=== PATIENT | female | born 1965 | race Caucasian/White ===

== ENCOUNTER 2022-09-01 09:44 | Emergency (ER) | payer BC ==
[~2022-09-01] VITALS: Ht 162.5 cm; Wt 60.3 kg
[2022-09-01] MEDS ORDERED: LACTATED RINGERS 1,000 ML IV STA (09:50)
--- NOTE | 2022-09-01 09:50 | ED GI ---
General Stated Complaint: DIZZINESS Source of Information: Patient, EMS Exam Limitations: No Limitations History of Present Illness Date Seen by Provider: Sep 01, 2022 Time Seen by Provider: 09:46 Initial Comments 56-year-old female with past medical history of hypertension and chronically low potassium coming in via EMS from work due to feeling lightheaded and vomiting. Started over an hour ago, has vomited multiple times nonbloody nonbilious. In the past, she states this is happened when her potassium was very low. EMS reports her blood pressure was around 200 systolic. She takes clonidine for this. She is otherwise denying any chest pain, shortness of breath, abdominal pain, diarrhea, focal weakness or numbness, headache, vision changes, or any other concerns. Allergies and Home Medications Allergies Coded Allergies: Penicillins (Verified Allergy, Unknown, 09/01/22) codeine (Verified Allergy, Unknown, 09/01/22) Patient Home Medication List Home Medication List Reviewed: Yes Review of Systems Review of Systems Constitutional: No chills, No fever EENTM: No Symptoms Reported Respiratory: No Symptoms Reported Cardiovascular: No Symptoms Reported Gastrointestinal: See HPI Genitourinary: No Symptoms Reported Musculoskeletal: no symptoms reported Skin: no symptoms reported Psychiatric/Neurological: No Symptoms Reported Past Wbxxugj-Olvfnc-Olrjzk Hx Patient Social History Tobacco Use?: No Past Medical History Surgeries: Yes Hysterectomy Physical Exam Vital Signs Vital Signs - First Documented 09/01/22 09:44 Temp 35.6 Pulse 84 Resp 16 B/P (MAP) 218/122 (154) Pulse Ox 96 Capillary Refill : Height/Weight/BMI Height: '" Weight: lbs. oz. kg; BMI Method: General Appearance: WD/WN, mild distress (Actively vomiting) HEENT: PERRL/EOMI, normal ENT inspection, pharynx normal, other (Serous fluid behind the right TM without any erythema or bulging) Neck: non-tender, full range of motion, supple, normal inspection Respiratory: chest non-tender, lungs clear, normal breath sounds, no respiratory distress, no accessory muscle use Cardiovascular: regular rate, rhythm, no edema, no murmur Gastrointestinal: normal bowel sounds, non tender, soft; No distended, No guarding, No rebound Extremities: normal range of motion, non-tender, normal inspection, no pedal edema, no calf tenderness, normal capillary refill Back: normal inspection, no CVA tenderness Neurologic/Psychiatric: manager financial II-XII nml as tested, no motor/sensory deficits, alert, normal mood/affect, oriented x 3 Skin: normal color, warm/dry Progress/Results/Core Measures Results/Orders Lab Results Laboratory Tests Test 09/01/22 09:45 09/01/22 10:04 Range/Units White Blood Count 8.5 4.3-11.0 10^3/uL Red Blood Count 5.03 3.80-5.11 10^6/uL Hemoglobin 16.0 11.5-16.0 g/dL Hematocrit 46 35-52 % Mean Corpuscular Volume 92 80-99 fL Mean Corpuscular Hemoglobin 32 25-34 pg Mean Corpuscular Hemoglobin Concent 35 32-36 g/dL Red Cell Distribution Width 12.2 10.0-14.5 % Platelet Count 264 130-400 10^3/uL Mean Platelet Volume 9.4 9.0-12.2 fL Immature Granulocyte % (Auto) 1 % Neutrophils (%) (Auto) 52 42-75 % Lymphocytes (%) (Auto) 39 12-44 % Monocytes (%) (Auto) 5 0-12 % Eosinophils (%) (Auto) 2 0-10 % Basophils (%) (Auto) 1 0-10 % Neutrophils # (Auto) 4.4 1.8-7.8 10^3/uL Lymphocytes # (Auto) 3.3 1.0-4.0 10^3/uL Monocytes # (Auto) 0.5 0.0-1.0 10^3/uL Eosinophils # (Auto) 0.2 0.0-0.3 10^3/uL Basophils # (Auto) 0.1 0.0-0.1 10^3/uL Immature Granulocyte # (Auto) 0.1 0.0-0.1 10^3/uL Sodium Level 138 135-145 MMOL/L Potassium Level 3.5 L 3.6-5.0 MMOL/L Chloride Level 105 98-107 MMOL/L Carbon Dioxide Level 21 21-32 MMOL/L Anion Gap 12 5-14 MMOL/L Blood Urea Nitrogen 9 7-18 MG/DL Creatinine 0.76 0.60-1.30 MG/DL Estimat Glomerular Filtration Rate 91 BUN/Creatinine Ratio 12 Glucose Level 132 H 70-105 MG/DL Calcium Level 9.2 8.5-10.1 MG/DL Corrected Calcium 9.0 8.5-10.1 MG/DL Magnesium Level 2.0 1.6-2.4 MG/DL Total Bilirubin 0.4 0.1-1.0 MG/DL Aspartate Amino Transf (AST/SGOT) 20 5-34 U/L Alanine Aminotransferase (ALT/SGPT) 11 0-55 U/L Alkaline Phosphatase 86 40-136 U/L Troponin I < 0.028 <0.028 NG/ML Total Protein 6.8 6.4-8.2 GM/DL Albumin 4.2 3.2-4.5 GM/DL Lipase 8 8-78 U/L Glucometer 131 H 70-110 MG/DL My Orders Orders - MIGUEL CARDONA MD Cbc With Automated Diff (09/01/22 09:50) Comprehensive Metabolic Panel (09/01/22 09:50) Lipase (09/01/22 09:50) Magnesium (09/01/22 09:50) Ed Iv/Invasive Line Start (09/01/22 09:50) Ekg Tracing (09/01/22 09:50) Promethazine Injection (Phenergan Injec (09/01/22 10:00) Lactated Ringers (Lr 1000 Ml Iv Solution (09/01/22 09:50) Ondansetron Injection (Zofran Injectio (09/01/22 10:15) Clonidine Tablet (Catapres Tablet) (09/01/22 10:15) Meclizine Tablet (Antivert Tablet) (09/01/22 10:45) Ct Head Wo (09/01/22 10:37) Troponin I Narendra (09/01/22 10:38) Labetalol Injection (Normodyne Injection (09/01/22 11:15) Medications Given in ED Current Medications Medications Dose Ordered Sig/Varsha Route Start Time Stop Time Status Last Admin Dose Admin Clonidine HCl 0.2 mg ONCE ONCE PO 09/01/22 10:15 09/01/22 10:16 DC 09/01/22 10:40 0.2 MG Labetalol HCl 20 mg ONCE ONCE IV 09/01/22 11:15 09/01/22 11:16 DC 09/01/22 11:20 20 MG Meclizine HCl 25 mg ONCE ONCE PO 09/01/22 10:45 09/01/22 10:46 DC 09/01/22 10:40 25 MG Ondansetron HCl 4 mg ONCE ONCE IVP 09/01/22 10:15 09/01/22 10:16 DC 09/01/22 10:24 4 MG Promethazine HCl 25 mg ONCE ONCE IVP 09/01/22 10:00 09/01/22 10:01 DC 09/01/22 09:59 25 MG Vital Signs/I&O 09/01/22 09:44 Temp 35.6 Pulse 84 Resp 16 B/P (MAP) 218/122 (154) Pulse Ox 96 Progress Progress Note : Progress Note 56-year-old female with above history coming in due to nonbloody nonbilious vomiting in the setting of feeling lightheaded. Patient was hypertensive on presentation. She states she intermittently takes clonidine for high blood pressure, but has not taken it in many months. Gave her clonidine after some IV Phenergan and Zofran. I was unclear if the blood pressure was making symptoms worse so went ahead and additionally treated it with IV labetalol. CT head with no acute findings. EKG with no ischemic changes. She states she has chronic low potassium, its low normal at 3.5 today. Troponin negative. Not having any other concerning findings other than the medical like sensation. She does have some decreased hearing on the right side which she states started around the same time. She does state that she has been going through a viral illness for the past several days. Differential includes BPPV versus labyrinthitis versus vestibular neuritis versus Mnire's versus less likely cerebellar stroke or VBI given lack of risk factors. Favor labyrinthitis given the hearing changes on the right side, serous fluid behind the right TM, vertigo symptoms, and recent viral illness. Her exam favors a peripheral cause of her symptoms given how violent the vertigo is with any head movement and gets better with rest. Patient unable to really tolerate the Jesús-Hallpike due to the movement causing worsening symptoms. After nausea medicines, fluid, and some rest, feeling a lot better. I believe she stable for discharge with outpatient management. We will send prescriptions for nausea medicines. If symptoms persist, would have her follow-up with ENT Initial ECG Impression Date: Sep 01, 2022 Initial ECG Impression Time: 09:57 Initial ECG Rate: 82 Initial ECG Rhythm: Normal Sinus Comment Narrow QRS, no STEMI, no ST or T wave changes that are concerning Diagnostic Imaging Diagonstic Imaging: CT (head) Comments NAME: FIONA [facility] REC#: [id number] PT STATUS: REG ER : 1965 PHYSICIAN: MIGUEL CARDONA MD ADMIT DATE: 09/01/22/ER Draft Date of Exam:09/01/22 CT HEAD WO Clinical Indication: Patient with vertigo right-sided hearing has decreased. Patient vomiting. Exam: Axial CT scan of the brain without IV contrast with coronal and sagittal reformatted images. Auto Exposure Controls were utilized during the CT exam to meet ALARA standards for radiation dose reduction. Comparison: None Findings: There is no evidence of acute cerebral infarct, intracranial hemorrhage, or gross mass effect. Suspected prominent perivascular space in the region beneath the right basal ganglia. The brain parenchymal volume appears appropriate for patient's age. There is normal morales-white matter distinction. There is no significant midline shift or herniation. There is no evidence of hydrocephalus. The basal cisterns are unremarkable. The skull, extracranial soft tissue, and orbits are unremarkable. The paranasal sinuses are unremarkable. Temporal bones show no significant abnormality. Impression: There is no evidence of acute intracranial process. Dictated on workstation # [id number] Dict: 09/01/22 1106 Trans: 09/01/22 1111 [facility] [id number] Interpreted by: SAHRA FOLEY MD Electronically signed by: Departure Impression Primary Impression: Vertigo Additional Impression: Labyrinthitis of right ear Disposition: HOME, SELF-CARE Condition: Stable Departure-Patient Inst. Decision time for Depature: 12:00 Referrals: MOSES ROMERO MD Patient Instructions: Labyrinthitis, Vertigo ED Add. Discharge Instructions: We believe the vertigo or dizziness and nausea you are feeling are from a problem with your inner ear on the right. This typically occurs after a viral illness which you are describing that you had. Typically this will last several days and then get better. If it is not improving, call Dr. Romero to schedule an appointment as he is the all around gear machine operator. I recommend taking [id number] Zyrtec as well which can help clear up the fluid behind the ear. You can take the Phenergan or Zofran as needed for nausea. The meclizine is for vertigo as well. If her blood pressure is elevated at home later today then you can take the clonidine that you previously were prescribed. If it is persistently elevated over the next several days, please call your doctor as you may need to be on a different medicine. Scripts Promethazine HCl (Promethazine Tablet) 25 Mg Tablet 25 MG PO Q8H PRN for NAUSEA/VOMITING-2ND LINE for 5 Days, #15 TAB 0 Refills Prov: MIGUEL CARDONA MD 09/01/22 Ondansetron (Ondansetron Odt) 4 Mg Tab.rapdis 4 MG SL Q6H PRN for NAUSEA/VOMITING-1ST LINE for 5 Days, #20 TAB Prov: MIGUEL CARDONA MD 09/01/22 Meclizine HCl (Meclizine HCl) 25 Mg Tablet 25 MG PO BID PRN for VERTIGO for 10 Days, #20 TAB Prov: MIGUEL CARDONA MD 09/01/22 Work/School Note: Family Work Note, Patient Received Medical Care In the Emergency Department On: Sep 01, 2022 Patient Will Be Able to Return to Work/School On: Sep 02, 2022 Work Release Form Date Seen in the Emergency Department: Sep 01, 2022 Return to Work: Sep 03, 2022 Restrictions: No Restrictions MIGEUL CARDONA MD Sep 01, 2022 09:50
[2022-09-01 10:00] LABS: BASOPHILS # (AUTO) 0.1 10^3/uL (0.0-0.1); BASOPHILS % (AUTO) 1 % (0-10); EOSINOPHILS # (AUTO) 0.2 10^3/uL (0.0-0.3); EOSINOPHILS % (AUTO) 2 % (0-10); HEMATOCRIT 46 % (35-52); LYMPHOCYTES # (AUTO) 3.3 10^3/uL (1.0-4.0); LYMPHOCYTES % (AUTO) 39 % (12-44); MEAN CORPUSCULAR HEMOGLOBIN 32 pg (25-34); MEAN CORPUSCULAR HGB CONC 35 g/dL (32-36); MEAN CORPUSCULAR VOLUME 92 fL (80-99); MEAN PLATELET VOLUME 9.4 fL (9.0-12.2); MONOCYTES # (AUTO) 0.5 10^3/uL (0.0-1.0); MONOCYTES % (AUTO) 5 % (0-12); NEUTROPHILS # (AUTO) 4.4 10^3/uL (1.8-7.8); NEUTROPHILS % (AUTO) 52 % (42-75); PLATELET COUNT 264 10^3/uL (130-400); WHITE BLOOD COUNT 8.5 10^3/uL (4.3-11.0)
[2022-09-01] MEDS ORDERED: PROMETHAZINE INJ 25 MG/ML (PHENERGAN) AMP IVP ONE (10:00)
[2022-09-01] MEDS ORDERED: cloNIDine 0.2 MG (CATAPRES) TAB PO ONE (10:15)
[2022-09-01] MEDS ORDERED: ONDANSETRON 4 MG/2 ML (SDV) Z0FRAN IVP ONE (10:15)
[2022-09-01 10:22] LABS: ALBUMIN 4.2 GM/DL (3.2-4.5); BILIRUBIN,TOTAL 0.4 MG/DL (0.1-1.0); CALCIUM 9.2 MG/DL (8.5-10.1); CREATININE SERUM 0.76 MG/DL (0.60-1.30); POTASSIUM 3.5 MMOL/L (3.6-5.0); TOTAL PROTEIN 6.8 GM/DL (6.4-8.2)
[2022-09-01] MEDS ORDERED: MECLIZINE 25 MG (ANTIVERT) TAB PO ONE (10:45)
--- NOTE | 2022-09-01 11:12 | Diagnostic Imaging Report ---
Clinical Indication: Patient with vertigo right-sided hearing has decreased. Patient vomiting. Exam: Axial CT scan of the brain without IV contrast with coronal and sagittal reformatted images. Auto Exposure Controls were utilized during the CT exam to meet ALARA standards for radiation dose reduction. Comparison: None Findings: There is no evidence of acute cerebral infarct, intracranial hemorrhage, or gross mass effect. Suspected prominent perivascular space in the region beneath the right basal ganglia. The brain parenchymal volume appears appropriate for patient's age. There is normal morales-white matter distinction. There is no significant midline shift or herniation. There is no evidence of hydrocephalus. The basal cisterns are unremarkable. The skull, extracranial soft tissue, and orbits are unremarkable. The paranasal sinuses are unremarkable. Temporal bones show no significant abnormality. Impression: There is no evidence of acute intracranial process. Dictated by: Dictated on workstation # [id number]
[2022-09-01] MEDS ORDERED: LABETALOL HCL 20 MG/4 ML VIAL IV ONE (11:15)
[2022-09-01] MEDS ORDERED: PROM25TA14 PO ×2 (11:37→16:07)
[2022-09-01] MEDS ORDERED: MECL-149 PO ×2 (11:37→16:07)
[2022-09-01] MEDS ORDERED: ONDA4TAB11 SL ×2 (11:37→16:07)
[2022-09-01] MEDS ORDERED: LABETALOL 200 MG (NORMODYNE) TAB PO ONE (11:45)
[2022-09-01 12:04] VITALS: BP 180/118
== END 2022-09-01 12:04 | disposition home or self-care (01) ==
LOC: EDUNIT# 09:44 → ER 09:45
DX: H83.91 Unspecified disease of right inner ear (principal); E87.6 Hypokalemia; I10 Essential (primary) hypertension; Z28.310 Unvaccinated for COVID-19
CPT/HCPCS: 36415; 70450; 80053; 82947; 83690; 83735; 84484; 85025; 93005

== ENCOUNTER 2023-04-28 09:24 | Inpatient (IN) | payer BC ==
[~2023-04-28] VITALS: Ht 162.6 cm; Wt 59.6 kg
[~2023-04-28 09:24] MED LIST: MECL-291 PO; ONDA4TAB11 SL; PROM25TA14 PO
[2023-04-28 11:15] VITALS: BP 125/82
--- OUTSIDE RECORDS SUMMARY | 2023-04-28 11:37 | XMS REPORT ---
Author Author Catie Ponce Organization [facility] Address [address] [place], [place] [id number] Care Team Providers Care Exchange Administrator Name Role Phone Susie Ponce PCP Allergies and Adverse Reactions Name Reaction Notes Penicillin codeine sulfate Anaphylaxis, Vomiting Codeine Phosphate Soluble codeine-guaifenesin Medications Active Name Start Date Estimated Comple tion Date SIG Comments clonidine HCl 0.1 mg oral tablet Take 1-2 tablets PO QD PRN for blood pressure Name Start Date Expiration Date SIG Comments potassium chloride 10 mEq oral tablet extended release 03/13/2019 03/07/2020 take 2 tablets (20 meq) by oral route 3 times per day with food for 30 days Abreva 10 % topical cream 09/04/2019 10/02/2019 ap ply to affected area(s) by topical route 3 times a day for 7 days azithromycin 250 mg oral tablet 09/04/2019 09/09/2019 take 2 tablets (500 mg) by oral route once daily for 1 day then 1 tablet (250 mg) by oral route once daily for 4 days Pyridium 100 mg tablet 12/09/2020 12/12/2020 take 1 tablet (100 mg) by oral route 3 times per day after meals for 3 days Cipro 250 mg tablet 12/13/2020 12/16/2020 take 1 t ablet by oral route 2 times a day for 3 days azithromycin 250 mg oral tablet 08/13/2021 08/18/2021 take 2 tablets (500 mg) by oral route once daily for 1 day then 1 tablet (250 mg) by oral route once daily for 4 days doxycycline hyclate 100 mg oral capsule 09/10/2021 09/17/2021 take 1 capsule (100 mg) by oral route every 12 hours for 7 days prednisone 20 mg oral tablet 09/10/2021 09/15/2021 take 2 tablets (40 m g) by oral route once daily for 5 days potassium chloride ER 10 mEq tablet,extended release(part/cryst) 03/13/2022 10/09/2022 TAKE 2 TABLETS (20 MEQ) BY MOUTH 3 TIMES PER DAY WITH FOOD FOR 30 DAYS Discontinued Name Start Date Discontinued Date SIG Comment s amlodipine 2.5 mg oral tablet 04/28/2021 Take 1-2 tabs PO QD Problem List Not available. Vital Signs Date Time BP-Sys(mm[Hg] BP-Zeenat(mm[Hg]) HR(bpm) RR(rpm) Temp WT HT HC BMI BSA BMI Percentile O2 Sat(%) 2022 8:43: 00 AM 138 mm[Hg] 108 mm[Hg] 86 {beats}/ min 18 rpm 98.1 F 137 lbs 98 % 2020 9:35: 00 AM 156 mm[Hg] 90 mm[Hg] 80 {beats}/ min 18 rpm 97.9 F 139 lbs 63 in 24.6 2 kg/m 2 1.67 m2 100 % 2020 5:24: 00 PM 150 mm[Hg] 92 mm[Hg] 81 {beats}/ min 18 rpm 98.1 F 143 lbs 63 in 25.3 311 kg/m 2 1.69 8 m2 97 % 2019 11:05 :00 AM 145 mm[Hg] 60 mm[Hg] 81 {beats}/ min 18 rpm 98.1 F 138 lbs 63 in 24.4 5 kg/m 2 1.67 m2 97 % 2018 5:33: 00 PM 160 mm[Hg] 100 mm[Hg] 84 {beats}/ min 18 rpm 97.9 F 132 .31 2 lbs 63 in 23.4 379 kg/m 2 1.63 33 m2 98 % Social History Name Description Comments Tobacco Current every day smoker 020 - denies alcohol use Caffeine walk History of Procedures Date Ordered Description Order Status 09/04/2019 12:00 AM THER/PROPH/DIAG INJ SC/IM Rev iewed 09/04/2019 12:00 AM Decadron 4mg Injection Review ed 09/04/2019 12:00 AM Depo-Medrol 40mg Injection Re viewed 11/07/2019 12:00 AM PNEUMOCOCCAL VACC 13 BRIE IM R eviewed 11/07/2019 12:00 AM IMMUNIZATION ADMIN Reviewed 12/09/2020 5:39 PM URINALYSIS AUTO W/O SCOPE Revi ewed 12/09/2020 5:43 PM URINALYSIS AUTO W/O SCOPE Revi ewed 04/28/2021 12:00 AM COMPLETE CBC W/AUTO DIFF WBC Reviewed 04/28/2021 12:00 AM COMPREHEN METABOLIC PANEL Rev iewed 04/28/2021 12:00 AM ASSAY THYROID STIM HORMONE Re viewed 04/28/2021 12:00 AM ASSAY OF FREE THYROXINE Revie wed 04/28/2021 12:00 AM LIPID PANEL Reviewed 04/28/2021 12:00 AM GLYCOSYLATED HEMOGLOBIN TEST Reviewed 04/28/2021 12:00 AM ROUTINE VENIPUNCTURE Reviewed 03/05/2022 12:00 AM COMPLETE CBC W/AUTO DIFF WBC Reviewed 03/05/2022 12:00 AM COMPREHEN METABOLIC PANEL Rev iewed 03/05/2022 12:00 AM ASSAY THYROID STIM HORMONE Re viewed 03/05/2022 12:00 AM GLYCOSYLATED HEMOGLOBIN TEST Reviewed 03/05/2022 12:00 AM LIPID PANEL Reviewed 03/05/2022 12:00 AM ROUTINE VENIPUNCTURE Reviewed 03/23/2023 9:21 AM SCREEN DEPRESSION PERFORMED Re viewed Results Summary Date and Description Results 12/09/2020 5:39 PM Clarity Ur clearUrin e-Color dark yellowGlucose Ur-sCnc negBilirub Ur Ql negKetones Ur Ql Strip negSp Gr Ur Qn >=1.030Hgb Ur Ql Strip smallpH Ur-LsCnc 6.0Prot Ur Ql Strip negUrobilinogen Ur-mCnc 0.2Nitrite Ur Ql Strip negWBC # Ur neg 12/09/2020 5:43 PM Clarity Ur clearUrin e-Color dark yellowGlucose Ur-sCnc negBilirub Ur Ql negKetones Ur Ql Strip negSp Gr Ur Qn >=1.030Hgb Ur Ql Strip smallpH Ur-LsCnc 6.0Prot Ur Ql Strip negUrobilinogen Ur-mCnc 0.2Nitrite Ur Ql Strip negWBC # Ur neg 04/28/2021 2:28 PM WBC 6.0RBC 5.01HGB 1 5.50 g/dLHCT 47.0 %MCV 94.0 fLMCH 30.90 pgMCHC 33.0 g/dLRDW SD 41 %RDW CV 11.80 %MPV 9.90 fLPLT 220 x10E3/uLNRBC# 0.00NRBC% 0.0%NEUT 57.9%LYMP 32.6%MONO 6.2%EOS 2.0%BASO 1.0#NEUT 3.47#LYMP 1.95#MONO 0.37#EOS 0.12#BASO 0.06MANUAL DIFF NOT INDGLUCOSE 97SODIUM 139POTASSIUM 4.0CHLORIDE 103.0 mmol/LCO2 32BUN 10.0 mg/dLCREATININE 0.70 mg/dLSGOT/AST 23SGPT/ALT 13ALK PHOS 89TOTAL PROTEIN 6.6ALBUMIN 4.0TOTAL BILI 0.3CALCIUM 9.90 mg/dLAGE 55GFR NonAA 86GFR AA 104eGFR 86 mL/min/1.73meGFR AA* >60 mL/min/1.73mTRIGLYCERIDES 227CHOLESTEROL 177.0 mg/dLHDL 44TOT CHOL/HDL 4.0LDL (CALC) 88HGB A1C 5.0 %Est Avg Glucose 96.8TSH 0.59 03/05/2022 4:30 PM WBC 7.0RBC 4.91HGB 1 5.40 g/dLHCT 45.40 %MCV 93.0 fLMCH 31.40 pgMCHC 33.90 g/dLRDW SD 42 %RDW CV 12.20 %MPV 9.90 fLPLT 242 x10E3/uLNRBC# 0.00NRBC% 0.0%NEUT 47.90%LYMP 42.30%MONO 5.80%EOS 2.60%BASO 1.10#NEUT 3.36#LYMP 2.97#MONO 0.41#EOS 0.18#BASO 0.08MANUAL DIFF NOT INDTRIGLYCERIDES 136CHOLESTEROL 247.0 mg/dLHDL 49TOT CHOL/HDL 5.0LDL (CALC) 171GLUCOSE 96SODIUM 135POTASSIUM 4.2CHLORIDE 103.0 mmol/LCO2 27BUN 13.0 mg/dLCREATININE 0.80 mg/dLSGOT/AST 33SGPT/ALT 20ALK PHOS 91TOTAL PROTEIN 7.4ALBUMIN 4.6TOTAL BILI 0.7CALCIUM 9.90 mg/dLAGE 56GFR NonAA 74GFR AA 90eGFR 74 mL/min/1.73meGFR AA* >60 mL/min/1.73mTSH W/REFLEX 0.90HGB A1C 5.20 %Est Avg Glucose 102.5 03/23/2023 9:21 AM During the past grayson h, have you been feeling depressed? NoDuring the past month, have you lost interest in usual activity? No History Of Immunizations Name Date Admin Mfg Name Mfg Code Trade Name Lot# Route Inj Vis Given Vis Pub CVX Pneumococcal 11/07/19 Catrina garay [employer] PREVNAR 13 [id number] Intramuscular Left Deltoid 11/07/192022 133 History of Past Illness Name Date of Onset Comments Hypokalemia Hypertension Hypokalemia Mar 13 2019 5:43PM HTN (hypertension) Mar 13 2019 5:43PM Acute maxillary sinusitis Sep 04 2019 11:09AM Cold sore Sep 04 2019 11:09AM Pneumococcus Nov 07 2019 9:30AM Enlarged thyroid Jul 02 2020 9:54AM HTN (hypertension) Jul 02 2020 9:54AM HLD (hyperlipidemia) Jul 02 2020 9:54AM Polycythemia Jul 02 2020 9:54AM Urinary Frequency Dec 09 2020 5:26PM Dehydration Dec 09 2020 5:26PM Essential hypertension Apr 28 2021 9:51AM Hypokalemia Apr 28 2021 9:51AM Fatigue Apr 28 2021 9:51AM Hypokalemia Apr 28 2021 9:37AM White coat syndrome with hig h blood pressure but without hypertension Apr 28 2021 9:37AM Vertigo Aug 13 2021 3:17PM Nasal congestion Aug 13 2021 3:17PM Cough Aug 13 2021 3:17PM Cough Sep 10 2021 10:12AM Nasal congestion Sep 10 2021 10:12AM Elevated glucose level Mar 02 2022 9:43AM Hypokalemia Mar 02 2022 9:43AM Mixed hyperlipidemia Mar 02 2022 9:43AM Fatigue Mar 02 2022 9:43AM Anemia Mar 02 2022 9:43AM Essential hypertension Mar 23 2023 8:50AM Hyponatremia Mar 23 2023 8:50AM Payers Insurance Name Company Name Plan Name Plan Number Policy Num rosalie Policy Group Number [facility] Date [id number] N/A [facility] [id number] N/A History of Encounters Visit Date Visit Type Provider 03/23/2023 Office visit Susie Ponce SOCIAL MEDIA MARKETING ANALYST 03/05/2022 Laboratory Susie Ponce SOCIAL MEDIA MARKETING ANALYST 09/10/2021 Office visit Caremn hogan SOCIAL MEDIA MARKETING ANALYST 08/13/2021 Office visit Carmen hogan SOCIAL MEDIA MARKETING ANALYST 04/28/2021 Office visit Susie Ponce SOCIAL MEDIA MARKETING ANALYST 12/09/2020 Office visit Marbella rider SOCIAL MEDIA MARKETING ANALYST 11/07/2019 Nurse visit Leah Jerome SOCIAL MEDIA MARKETING ANALYST 09/04/2019 Office visit Susie Ponce SOCIAL MEDIA MARKETING ANALYST 03/13/2019 Office visit Sylvia Jenkins PRN
--- OUTSIDE RECORDS SUMMARY | 2023-04-28 11:37 | XMS REPORT ---
Author Author Catie Ramos Organization [facility] Address [address] [place], [place] [id number] Care Team Providers Care Field Artillery Officer Name Role Phone Carmen Ramos PCP Allergies and Adverse Reactions Name Reaction Notes Penicillin codeine sulfate Anaphylaxis, Vomiting Codeine Phosphate Soluble codeine-guaifenesin Plan of Treatment Planned Activity Comments Planned Date Planned Time Plan /Goal CMP 03/24/2023 12:00 AM Acute abdomen x-ray series 03/24/2023 12:00 AM Medications Active Name Start Date Estimated Comple tion Date SIG Comments clonidine HCl 0.1 mg oral tablet Take 1-2 tablets PO QD PRN for blood pressure lisinopril oral tablet 20 mg 03/23/2023 05/22/2023 take 1 tablet (20 mg) by oral route once daily for 30 days Norvasc oral tablet 10 mg 03/24/2023 04/23/2023 take 1 tablet (10 mg) by oral route once daily at bedtime Name Start Date Expiration Date SIG Comments [...] BMI BSA BMI Percentile O2 Sat(%) 2022 5:50: 00 PM 160 mm[Hg] 104 mm[Hg] 2022 4:59: 00 PM 210 mm[Hg] 112 mm[Hg] 78 {beats}/ min 18 rpm 98.2 F 137 .37 5 lbs 63 in 24.3 3 kg/m 2 1.66 m2 98 % 2022 8:43: 00 AM 138 mm[Hg] 108 [...] 9:21 AM SCREEN DEPRESSION PERFORMED Re viewed 03/24/2023 5:16 PM URINALYSIS AUTO W/O SCOPE Revi ewed Results Summary Date and Description Results 12/09/2020 [...] you lost interest in usual activity? No 03/24/2023 5:16 PM Clarity Ur clearUrin e-Color yellowGlucose Ur-sCnc negBilirub Ur Ql negKetones Ur Ql Strip negSp Gr Ur Qn >=1.030Hgb Ur Ql Strip LargepH Ur-LsCnc 5.5Prot Ur Ql Strip TraceUrobilinogen Ur-mCnc 0.2 E.U/dLNitrite Ur Ql Strip NegWBC # Ur Neg History Of Immunizations Name Date Admin Mfg Name Mfg Code Trade Name Lot# Route Inj Vis Given Vis Pub CVX Pneumococcal 11/07/19 Catrina coxPra xis W[employer] PREVNAR 13 [id number] Intramuscular Left Deltoid 11/07/19 20 2022 133 History of Past Illness Name Date [...] 2023 8:50AM Hyponatremia Mar 23 2023 8:50AM Uncontrolled hypertension Mar 24 2023 5:02PM Hematuria Mar 24 2023 5:02PM History of hypokalemia Mar 24 2023 5:02PM Hypertensive crisis Mar 24 2023 5:02PM Payers Insurance Name Company Name Plan Name Plan Number Policy Num rosalie Policy Group Number Start Date BCBS [facility] [id number] N/A R R [id number] N/A History of Encounters Visit Date Visit Type Provider 03/24/2023 Office visit Carmen hogan ROBOTYPE OPERATOR 03/23/2023 Office visit Susie Ponce ROBOTYPE OPERATOR 03/05/2022 Laboratory Susie Ponce ROBOTYPE OPERATOR 09/10/2021 Office visit Carmen hogan ROBOTYPE OPERATOR 08/13/2021 Office visit Carmen hogan ROBOTYPE OPERATOR 04/28/2021 Office visit Susie Ponce ROBOTYPE OPERATOR 12/09/2020 Office visit Marbella rider ROBOTYPE OPERATOR 11/07/2019 Nurse visit Leah Jerome ROBOTYPE OPERATOR 09/04/2019 Office visit Susie Ponce ROBOTYPE OPERATOR 03/13/2019 Office visit Sylvia HAIR
--- OUTSIDE RECORDS SUMMARY | 2023-04-28 11:37 | XMS REPORT ---
Author Author Catie Randall Organization [facility] Address [address] [place], [place] [id number] Care Team Providers Care Gyro Compass Tester Name Role Phone Hernan Randall PCP Allergies and Adverse Reactions Name Reaction Notes Penicillin Anaphylaxis codeine sulfate Anaphylaxis, Vomiting digoxin near syncope Medications Active Name Start Date Estimated Comple tion Date SIG Comments clonidine HCl 0.1 mg oral tablet Take 1-2 tablets PO QD PRN for blood pressure Norvasc oral tablet 10 mg 03/24/2023 04/23/2023 take 1 tablet (10 mg) by oral route once daily at bedtime lisinopril oral tablet 20 mg 03/29/2023 05/28/2023 Take 1 tablet BID aspirin 81 mg tablet,delayed release take 1 tablet (81 mg) by oral route once daily potassium chloride ER 10 mEq tablet,extended release(part/cryst) 03/29/2023 10/25/2023 TAKE 2 TABLETS (20 MEQ) BY MOUTH 3 TIMES PER DAY WITH FOOD FOR 30 DAYS Name Start Date Expiration Date SIG Comments [...] oral route once daily for 5 days Discontinued Name Start Date Discontinued Date SIG Comment s amlodipine 2.5 mg oral tablet 04/28/2021 Take 1-2 tabs PO QD Problem List Not available. Vital Signs Date Time BP-Sys(mm[Hg] BP-Zeenat(mm[Hg]) HR(bpm) RR(rpm) Temp WT HT HC BMI BSA BMI Percentile O2 Sat(%) 2022 1:59: 00 PM 124 mm[Hg] 82 mm[Hg] 78 {beats}/ min 18 rpm 98.2 F 137 lbs 63 in 24.2 682 kg/m 2 1.66 2 m2 98 % 2022 5:50: 00 PM 160 mm[Hg] 104 mm[Hg] 2022 4:59: 00 PM 210 mm[Hg] 112 mm[Hg] 78 {beats}/ min 18 rpm 98.2 F 137 .37 5 lbs 63 in 24.3 3 kg/m 2 1.66 43 m2 98 % 2022 8:43: 00 AM 138 mm[Hg] 108 mm[Hg] 86 {beats}/ min 18 rpm 98.1 F 137 lbs 98 % 2020 9:35: 00 AM 156 mm[Hg] 90 mm[Hg] 80 {beats}/ min 18 rpm 97.9 F 139 lbs 63 in 24.6 2 kg/m 2 1.67 41 m2 100 % 2020 5:24: 00 PM 150 mm[Hg] 92 mm[Hg] 81 {beats}/ min 18 rpm 98.1 F 143 lbs 63 in 25.3 311 kg/m 2 1.70 m2 97 % 2019 11:05 :00 AM 145 mm[Hg] 60 mm[Hg] 81 {beats}/ min 18 rpm 98.1 F 138 lbs 63 in 24.4 5 kg/m 2 1.66 81 m2 97 % 2018 5:33: 00 PM 160 mm[Hg] 100 mm[Hg] 84 {beats}/ min 18 rpm 97.9 F 132 .31 2 lbs 63 in 23.4 379 kg/m 2 1.63 33 m2 98 % Social History Name Description Comments Tobacco Current every day smoker 1 pack every 7 days denies alcohol use Caffeine walk History of [...] PM URINALYSIS AUTO W/O SCOPE Revi ewed 03/24/2023 12:00 AM COMPREHEN METABOLIC PANEL Ret urned 03/24/2023 12:00 AM X-RAY EXAM SERIES ABDOMEN Ret urned 03/29/2023 12:00 AM COMPLETE CBC W/AUTO DIFF WBC Returned 03/29/2023 12:00 AM COMPREHEN METABOLIC PANEL Ret urned 03/29/2023 12:00 AM GLYCOSYLATED HEMOGLOBIN TEST Returned 03/29/2023 12:00 AM LIPID PANEL Returned 03/29/2023 12:00 AM ASSAY THYROID STIM HORMONE Re turned 03/29/2023 12:00 AM VITAMIN B-12 Returned 03/29/2023 12:00 AM URINALYSIS AUTO W/SCOPE Retur joseph 03/29/2023 12:00 AM MICROALBUMIN QUANTITATIVE Ret urned Results Summary Date and Description Results 12/09/2020 [...] Given Vis Pub CVX P[facility] [id number] Intramuscular Left Deltoid 11/07/19 20 2023 133 History of Past Illness Name Date of Onset Comments Hypokalemia Hypertension Meningitis Viral hepatitis C Endometriosis Shingles Hypokalemia Mar 13 2019 5:43PM HTN (hypertension) [...] 5:02PM Hypertensive crisis Mar 24 2023 5:02PM Uncontrolled hypertension Mar 29 2023 3:19PM Hematuria Mar 29 2023 3:19PM Hypokalemia Mar 29 2023 3:19PM Establishing care with new doctor, encounter for Mar 29 2023 3:19PM Hyperglycemia Mar 29 2023 3:19PM Screening for diabetes mellitus Mar 29 2023 3:1 9PM HLD (hyperlipidemia) Mar 29 2023 3:19PM Establishing care with new doctor, encounter for Mar 29 2023 2:00PM HTN (hypertension) Mar 29 2023 2:00PM Hypokalemia Mar 29 2023 2:00PM Hematuria Mar 29 2023 2:00PM Tremor Mar 29 2023 2:00PM Payers Insurance Name Company Name Plan Name Plan Number Policy Num rosalie Policy Group Number Start Date BCBS Bcbs [facility] [id number] N/A UMR UMR [id number] N/A History of Encounters Visit Date Visit Type Provider 03/29/[address] Hernan Hong 03/24/2023 Office visit Carmen hogan [employer]OTOGRAPH[employer]' 03/23/2023 Office visit Susie Ponce [employer]APH[employer]' 03/05/2022 Laboratory Susie Ponce [employer]GRAPH[employer]' 09/10/2021 Office visit Carmen hogan [employer] PHOTOGRAPHERS' 08/13/2021 Office visit Carmen hogan [employer]DEL PHOTOGRAPHERS' 04/28/2021 Office visit Susie Ponce [employer]OTOGRAPH[employer]' 12/09/2020 Office visit Marbella rider [employer]OTOGRAPHERS' 11/07/2019 Nurse visit Leah Jerome [employer]OTOGRAPH[employer]' 09/04/2019 Office visit Susie Ponce [employer]OTO[employer]APH[employer] 03/13/2019 Office visit Sylvia Jenkins PRN
--- OUTSIDE RECORDS SUMMARY | 2023-04-28 11:37 | XMS REPORT ---
Author Author Catie Ramos Organization [facility] Address [address] [place], [place] [id number] Care Team Providers Care Equipment Cleaner And Tester Name Role Phone Carmen Ramos PCP Allergies and Adverse Reactions Name Reaction Notes Penicillin codeine sulfate Anaphylaxis, Vomiting Codeine Phosphate Soluble codeine-guaifenesin Plan of Treatment Planned Activity Comments Planned Date Planned Time Plan /Goal Acute abdomen x-ray series 03/24/2023 12:00 AM [...] 12:00 AM COMPREHEN METABOLIC PANEL Ret urned Results Summary Date and Description [...] 11/07/19 Catrina coxPra xis WAL PREVNAR 13 [id number] Intramuscular Left Deltoid 11/07/19 20 2022 133 [...] rosalie Policy Group Number Start Date BCBS [facility] [id number] N/A R UMR [id number] N/A History of Encounters Visit Date Visit Type Provider 03/24/2023 Office visit Carmen hogan CENTER MAKER [employer] 03/23/2023 Office visit Susie Ponce [employer] 03/05/2022 Laboratory Susie Ponce [employer] 09/10/2021 Office visit Carmen hogan CENTER MA[employer] 08/13/2021 Office visit Carmen hogan CENTER MA[employer]ER HAND 04/28/2021 Office visit Susie Ponce CENTER MA[employer]ER HAND 12/09/2020 Office visit Marbella rider CENTER MAKER HAND 11/07/2019 Nurse visit Leah Jerome CENTER MA[employer]ER HAND 09/04/2019 Office visit Susie Ponce CENTER MA[employer]ER HAND 03/13/2019 Office visit Sylvia HAIR
--- OUTSIDE RECORDS SUMMARY | 2023-04-28 11:37 | XMS REPORT ---
Author Author Catie Randall Organization [facility] Address [address] [place], [place] [phone] Care Team Providers Care Examining Chair Assembler Name Role Phone Hernan Randall PCP Allergies and Adverse Reactions Name Reaction Notes Penicillin Anaphylaxis codeine sulfate Anaphylaxis, Vomiting digoxin near syncope Plan of Treatment Planned Activity Comments Planned Date Planned Time Plan /Goal CBC W/ AUTO DIFF (RFLX MAN DIFF IF IND). 023 12:00 AM CMP 03/29/2023 12:00 AM HGB A1C 03/29/2023 12:00 AM LIPID PANEL 03/29/2023 12:00 AM TSH W/RFLX T4 FREE 03/29/2023 12:00 AM VITAMIN B12 03/29/2023 12:00 AM URINALYSIS W/MICRO C&S IF IND 03/29/2023 12:00 AM Urine microalbumin measurement 03/29/2023 12:00 AM Medications Active Name Start Date [...] 137 .37 5 lbs 63 in 24.3 346 kg/m 2 1.66 43 m2 98 % [...] AM X-RAY EXAM SERIES ABDOMEN Ret urned Results Summary Date and Description [...] 11/07/19 Catrina coxPra xis WAL PREVNAR 13 [id number] Intramuscular Left Deltoid 11/07/192023 133 History of Past Illness Name Date [...] 9PM HLD (hyperlipidemia) Mar 29 2023 3:19PM Payers Insurance Name Company Name Plan Name Plan Number Policy Num rosalie Policy Group Number Start Date BCBS Bcbs [facility] [id number] N/A [facility] UMR [id number] N/A History of Encounters Visit Date Visit Type Provider 03/29/[address] Hernan Hong 03/24/2023 Office visit Carmen hogan TUBE CARRIER 03/23/2023 Office visit Susie Ponce TUBE CARRIER 03/05/2022 Laboratory Susie Ponce TUBE CARRIER 09/10/2021 Office visit Carmen hogan TUBE CARRIER 08/13/2021 Office visit Carmen hogan TUBE CARRIER 04/28/2021 Office visit Susie Ponce TUBE CARRIER 12/09/2020 Office visit Marbella rider TUBE CARRIER 11/07/2019 Nurse visit Leah Jerome TUBE CARRIER 09/04/2019 Office visit Susie Ponce TUBE CARRIER 03/13/2019 Office visit Sylvia Jenkins PRN
--- OUTSIDE RECORDS SUMMARY | 2023-04-28 11:37 | XMS REPORT ---
Author Author Catie Randall Organization [employer] [facility] Address [address] [place], [place] [phone] Care Team Providers Care Faa Certified Powerplant Mechanic Name Role Phone Hernan Randall PCP Allergies [...] by oral route once daily potassium chloride oral tablet,ER particles/crystals 10 mEq 03/30/2023 04/29/2023 TAKE 2-3 TABLETS BY MOUTH 3 TIMES PER DAY WITH [...] Given Vis Pub CVX Pneumococcal 11/07/19 Catrina Goddard xis WAL PREVNAR 13 [id number] Intramuscular Left Deltoid 11/07/192022 133 History of [...] Policy Group Number Start Date BCBS Bcbs [facility] [id number] N/A UMR UMR [id number] N/A History of Encounters Visit Date Visit Type Provider 03/29/[address] Hernan Hong 03/24/2023 Office visit Carmen hogan COLOR MIXER 03/23/2023 Office visit Susie Ponce COLOR MIXER 03/05/2022 Laboratory Susie Ponce COLOR MIXER 09/10/2021 Office visit Carmen hogan COLOR MIXER 08/13/2021 Office visit Carmen hogan COLOR MIXER 04/28/2021 Office visit Susie Ponce COLOR MIXER 12/09/2020 Office visit Marbella rider COLOR MIXER 11/07/2019 Nurse visit Leah Jerome COLOR MIXER 09/04/2019 Office visit Susie Ponce COLOR MIXER 03/13/2019 Office visit Sylvia Jenkins PRN
--- OUTSIDE RECORDS SUMMARY | 2023-04-28 11:37 | XMS REPORT ---
Author Author Catie Randall Organization [employer] [facility] Address [address] [place], [place] [phone] Care Team Providers Care Histopathologist Name Role Phone Hernan Randall PCP Allergies [...] 11/07/19 Catrina coxPra xis WAL PREVNAR 13 [id number] Intramuscular Left Deltoid 11/07/192023 133 History of [...] Policy Group Number Start Date BCBS Bcbs [facility] [id number] N/A [facility] UMR [id number] N/A History of Encounters Visit Date Visit Type Provider 03/29/[address] Hernan Hong 03/24/2023 Office visit Carmen hogan [employer] 03/23/2023 Office visit Susie Ponce [employer] 03/05/2022 Laboratory Susie Ponce [employer] 09/10/2021 Office visit Carmen hogan [employer] 08/13/2021 Office visit Carmen hogan [employer] 04/28/2021 Office visit Susie Ponce [employer] 12/09/2020 Office visit Marbella rider [employer] 11/07/2019 Nurse visit Leah Jerome [employer] 09/04/2019 Office visit Susie Ponce [employer] 03/13/2019 Office visit Sylvia Jenkins PRN
--- NOTE | 2023-04-28 11:51 | PM&R Post Admission Assessment ---
PM&R HP Date of Visit: Apr 28, 2023 Time of Visit: 16:00 History of Present Illness CC: CVA with residual right sided weakness with balance dysfunction HPI: This is a 57yoWF clinic patient of Dr Randall in [place] who presents to the ARU in need of recovery following bilateral internal capsule infarcts and r esidual disability. ECHO and MRI and labs were completed at [facility] and I did review the chart. Her is at the bedside and her cognition appears to be reasonable following the CVA. She has concerns about what caused the CVA and if she really must take her BP meds of which I reassured her and recommended to take all meds as ordered. MRI Brain at [facility]: IMPRESSION: * Findings suggestive of acute infarction left periventricular white matter and posterior left internal capsule. No associated hemorrhage. * Subacute infarct right periventricular deep white matter and right posterior internal capsule. ECHO: Conclusion Left ventricle: normal size, mild asymmetric septal hypertrophy, normal LV systolic function (LVEF 70-75 %) Right ventricle: normal size, normal function Diastolic function: grade 1 No significant valvular regurgitation or stenosis Pulmonary artery systolic pressure: 20-25 mmHg Bubble study (Rest and Valsalva) was performed with agitated saline and was NEGATIVE for a PFO/ASD CC: CVA HPI: Mrs. Queen is a 57 y/o female presenting to inpatient rehab follow a CVA that occured on Wednesday. She forgot to take her blood pressure medications on Wednesday, and was having a headache, along with some numbness/weakness in her R leg. She went to bed and woke up Wednesday morning feeling paralyzed from the neck down. Her drove her to the local ER in [place]. She was transferred to [facility] where CT and MRI of her head showed she "had 2 clots near the brainstem". EKG was normal and echo performed demonstrated no PFO. Today she is reporting symptoms of unstable feeling/lack of control of her right leg, along with numbness/tingling on the right half of her body. PMH: hypokalemia, endometriosis PSH: wrist fracture, gallbladder, appendix, hysterectomy, endometriosis Allergies: maize, peanuts, citris, codeine, penicillin, doxycycline Meds: lisinopril, atorvastatin, clonidine, amlodipine, plavix, aspirin, potassium SH: smoked last week. 3 cigs/day. denies alcohol or ilicit drug use. FH: Father: CVA, kidney cx ROS: no headache, no dizziness, not lightheaded. No fatigue, muscle weakness. A&O x3, no SOB/CP. No abdominal pain. No N/V/D. PE: A&O x3. EOMI. RRR, no murmurs.2+ distal pulses. CTAB, normal air movement. No abdominal TTP. SILT upper and lower extremities bilaterally. 5/5 strength throughout upper and lower extremities. Labs/Imaging: None. Per patient, Head CT and MRI from outside hospital showed "2 clots near brainstem" Assessment: Mrs. Queen is a 57 y/o female presenting for inpatient rehab s/p CVA 04/24 Plan: CVA: -rule out etiology -PT/OT to gain function -speech assessment hypokalemia -PO K+ supplementation DUNG EGAN Past Syekorm-Vjbqpl-Lpgyon Hx Past Med/Social Hx: Reviewed Nursing Past Med/Soc Hx, Reviewed and Corrections made Patient Social History Marrital Status: Employed/Student: employed Alcohol Use: Denies Use Smoking Status: Light Tobacco Smoker Past Medical History Surgeries: Hysterectomy Cardiac: Hypertension Neurological: Stroke PM&R Allergy/Meds/Data Review Allergies Coded Allergies: Penicillins (Verified Allergy, Unknown, 09/01/22) codeine (Verified Allergy, Unknown, 09/01/22) Home Medications Scheduled Amlodipine Besylate (Amlodipine Besylate), 10 MG PO DAILY, (Reported) Aspirin (Aspirin), 81 MG PO DAILY, (Reported) Atorvastatin Calcium (Atorvastatin Calcium), 20 MG PO DAILY, (Reported) Clonidine HCl (Clonidine HCl), 0.1 MG PO TID, (Reported) Clopidogrel Bisulfate (Clopidogrel), 75 MG PO DAILY, (Reported) Lisinopril (Lisinopril), 20 MG PO DAILY, (Reported) Potassium Chloride (Potassium Chloride), 20 MEQ PO TID, (Reported) Discontinued Medications Meclizine HCl (Meclizine HCl), 25 MG PO BID PRN for VERTIGO Discontinued Reason: No Longer Taking Ondansetron (Ondansetron Odt), 4 MG SL Q6H PRN for NAUSEA/VOMITING-1ST LINE Discontinued Reason: No Longer Taking Promethazine HCl (Promethazine Tablet), 25 MG PO Q8H PRN for NAUSEA/VOMITING-2ND LINE Discontinued Reason: No Longer Taking Current Medications Current Medications Reviewed Review of Systems Constitutional: see HPI, malaise, weakness EENTM: no symptoms reported Respiratory: no symptoms reported Cardiovascular: no symptoms reported Gastrointestinal: no symptoms reported Genitourinary: no symptoms reported Musculoskeletal: no symptoms reported Skin: no symptoms reported Psychiatric/Neurological: Anxiety, Numbness, Weakness All Other Systems Reviewed Negative Unless Noted: Yes Physical Exam Physical Exam Vital Signs Capillary Refill : Height, Weight, BMI Height: '" Weight: lbs. oz. kg; 22.00 BMI Method: General Appearance: No Apparent Distress, WD/WN, Chronically ill Eyes: Bilateral Eye Normal Inspection, Bilateral Eye PERRL HEENT: PERRL/EOMI, Normal ENT Inspection, Pharynx Normal Neck: Full Range of Motion, Normal Inspection, Non Tender, Supple, Carotid Bruit Respiratory: Chest Non Tender, Lungs Clear, Normal Breath Sounds, No Accessory Muscle Use, No Respiratory Distress Cardiovascular: Regular Rate, Rhythm, No Edema, No Gallop, No JVD, No Murmur, Normal Peripheral Pulses Gastrointestinal: Normal Bowel Sounds, No Organomegaly, No Pulsatile Mass, Non Tender, Soft Back: Normal Inspection, No CVA Tenderness, No Vertebral Tenderness Extremity: Normal Capillary Refill, Normal Inspection, Normal Range of Motion, Non Tender, No Calf Tenderness, No Pedal Edema Neurologic/Psychiatric: Alert, Oriented x3, Normal Mood/Affect, head scorer II-XII Norm as Tested, Motor Weakness (right sided subtle weakness) Skin: Normal Color, Warm/Dry Lymphatic: No Adenopathy PM&R Medical Assessment & Plan REHAB/MEDICAL ASSESSMENT AND PLAN: REHAB IMPAIRMENT GROUP: Cerebral infarct bilateral ETIOLOGIC DIAGNOSIS: Acute left and right internal capsule infarct The comorbidities that impact the patients function and/or functional outcome by: recent CVA with elevated BP at high risk for extension, smoker, residual weakness REHAB PLAN: The patient is being admitted to our comprehensive inpatient rehabilitation facility and can tolerate the intensity of service consisting of at least: 180 minutes of therapy a day, 5 out of 7 days a week Rehab treatment will consist of: PT OT will focus on regaining function with the use of AD in order to return to independent living and will focus on regaining ADL's The patient/family has a good understanding of our discharge process and will benefit from an interdisciplinary inpatient rehabilitation program. The patient has potential to make improvement and is in need of at least two of the following multidisciplinary therapies including but not limited to physical, occupational, speech, and prosthetics and orthotics. Additionally the patient will need services from respiratory, nutritional services, wound care, psychology, etc. (Customize this to each patient). Given the patients complex condition and risk of further medical complications, rehabilitation services cannot be safely or effectively provided at a lower level of care such as a halfway facility. BARRIERS TO DISCHARGE: Non-compliance with med treatments ESTIMATED LOS: 7 days DISPOSITION: Home RELEVANT CHANGES SINCE PREADMISSION SCREENING: I have compared the patients medical and functional status at the time of the preadmission screening and there are: no changes PROGNOSIS: Good REHABILITATION GOALS: 1. PT OT will focus on regaining function with the use of AD in order to return to independent living and will focus on regaining ADL's All the above goals were reviewed with the patient and he/she is in agreement. By signing this document, I acknowledge that I have personally performed a full physical examination on this patient within 24 hours of admission to this inpatient rehabilitation facility and have determined the patient to be able to tolerate the above course of treatment at an intensive level for a reasonable period of time. I will be completing a detailed individualized Plan of Care for this patient by day #4 of the patients stay based upon the Preadmission Screen, the Post-Admission Evaluation, and the therapy evaluations. Admission Dx/Comorbidities: (1) CVA (cerebral vascular accident) ICD Codes: I63.9 - Cerebral infarction, unspecified Assessment/Plan Assessment and Plan Assess & Plan/Chief Complaint Assessment: CVA bilateral internal capsules Right sided weakness and numbness HTN HLP Smoker Non-compliance with medications plan: PT OT Home meds Monitor closely KYMJEFFMarie GRANDE Apr 28, 2023 11:51
[2023-04-28] MEDS ORDERED: MELATONIN 3 MG TABLET PO PRN (12:00)
[2023-04-28] MEDS ORDERED: ONDANSETRON 4 MG ORAL DISSOLVE TABLET PO PRN (12:00)
[2023-04-28] MEDS ORDERED: diphenhydrAMINE 25 MG TABLET PO PRN (12:00)
[2023-04-28] MEDS ORDERED: ALPRAZolam 0.25 MG TABLET PO PRN (12:00)
[2023-04-28] MEDS ORDERED: CALCIUM CARBONATE 500 MG CHEW TABLET PO PRN (12:00)
[2023-04-28] MEDS ORDERED: Sodium Phosphate/Sodium Biphosphate ADULT enema PR PRN (12:00)
[2023-04-28] MEDS ORDERED: guaiFENesin/CODEINE 10ML UDC PO PRN (12:00)
[2023-04-28] MEDS ORDERED: LOPERAMIDE 2 MG CAPSULE PO PRN (12:00)
[2023-04-28] MEDS ORDERED: DOCUSATE SODIUM 100 MG CAPSULE PO PRN (12:00)
[2023-04-28] MEDS ORDERED: ACETAMINOPHEN 325 MG TABLET PO PRN (12:00)
[2023-04-28] MEDS ORDERED: BISACODYL 10 MG SUPPOSITORY PR PRN (12:00)
[2023-04-28] MEDS ORDERED: LACTULOSE SYRUP 10GM/15ML 30ML UDC PO PRN (12:00)
[2023-04-28] MEDS ORDERED: LISI20TA26 PO (12:32)
[2023-04-28] MEDS ORDERED: AMLO-251 PO (12:32)
[2023-04-28] MEDS ORDERED: ASPI-999 PO (12:32)
[2023-04-28] MEDS ORDERED: CLOP75TA28 PO (12:32)
[2023-04-28] MEDS ORDERED: CLN.1T PO (12:32)
[2023-04-28] MEDS ORDERED: POTA-177 PO (12:32)
[2023-04-28] MEDS ORDERED: ATOR20TA66 PO (12:32)
--- NOTE | 2023-04-28 13:40 | Progress Note ---
DUNG EGAN 04/28/23 1340: Progress Note CC: CVA HPI: Mrs. Queen is a 57 y/o female presenting to inpatient rehab follow a CVA that occured on Wednesday. She forgot to take her blood pressure medications on Wednesday, and was having a headache, along with some numbness/weakness in her R leg. She went to bed and woke up Wednesday morning feeling paralyzed from the neck down. Her drove her to the local ER in [place]. She was transferred to [facility] where CT and MRI of her head showed she "had 2 clots near the brainstem". EKG was normal and echo performed demonstrated no PFO. Today she is reporting symptoms of unstable feeling/lack of control of her right leg, along with numbness/tingling on the right half of her body. PMH: hypokalemia, endometriosis PSH: wrist fracture, gallbladder, appendix, hysterectomy, endometriosis Allergies: maize, peanuts, citris, codeine, penicillin, doxycycline Meds: lisinopril, atorvastatin, clonidine, amlodipine, plavix, aspirin, po tassium SH: smoked last week. 3 cigs/day. denies alcohol or ilicit drug use. FH: Father: CVA, kidney cx ROS: no headache, no dizziness, not lightheaded. No fatigue, muscle weakness. A&O x3, no SOB/CP. No abdominal pain. No N/V/D. PE: A&O x3. EOMI. RRR, no murmurs.2+ distal pulses. CTAB, normal air movement. No abdominal TTP. SILT upper and lower extremities bilaterally. 5/5 strength throughout upper and lower extremities. Labs/Imaging: None. Per patient, Head CT and MRI from outside hospital showed "2 clots near brainstem" Assessment: Mrs. Queen is a 57 y/o female presenting for inpatient rehab s/p CVA 04/24 Plan: CVA: -rule out etiology -PT/OT to gain function -speech assessment hypokalemia -PO K+ supplementation SAHRA SANCHEZ DO 04/28/23 [id number]: Supervisory-Addendum Brief Verification & Attestation Participated in pt care: history, MDM, physical Personally performed: exam, history, MDM, supervision of care Care discussed with: Medical Student Procedures: n/a Results interpretation: Verified all documentation Verification and Attestation of Medical Student E/M Service A medical student performed and documented this service in my presence. I reviewed and verified all information documented by the medical student and made modifications to such information, when appropriate. I personally performed the physical exam and medical decision making. Sahra Sanchez, Apr 28, 2023,19:03 DUNG EGAN Apr 28, 2023 13:40 SAHRA SANCHEZ DO Apr 28, 2023 19:03
--- NOTE | 2023-04-28 14:25 | Occupational Therapy Eval ---
OT Evaluation-General/PLF Medical Diagnosis Admission Date Apr 28, 2023 at 11:15 Medical Diagnosis: CVA Onset Date: Apr 24, 2023 Therapy Diagnosis Therapy Diagnosis: decreased ADL status, impaired functional use RUE Precautions Precautions/Isolations: Fall Prevention, Standard Precautions Referral Physician: Laura Patino Reason: Evaluation/Treatment Medical History Additional Medical History HTN, low potassium syndrome, meningitus, viral hepatitis, appendectomy, wrist fx Current History ED with c/o being unable to walk, last well known time 10am 04/24/23. Pt admitted and diagnoses with CGA. Pt transferred to [facility] 04/28/23. Social History Home: Single Level Current Living Status: Spouse Entry Into Home: Stairs With Railing Steps Into Home: 3 ADL-Prior Level of Function SCALE: Activities may be completed with or without assistive devices. 0-Xegkdecqfv-ktmvzdi completes the activity by him/herself with no assistance from a helper. 5-Set-up or Clean-up Assistance-helper sets up or cleans up; patient completes activity. [place] assists only prior to or following the activity. 4-Supervision or Touching Assistance-helper provides verbal cues and/or touching/steadying and/or contact guard assistance as patient completes activity. Assistance may be provided throughout the activity or intermittently. 3-Partial/Moderate Assistance-helper does LESS THAN HALF the effort. [place] lifts, holds or supports trunk or limbs, but provides less than half the effort. 2-Substantial/Maximal Assistance-helper does MORE THAN HALF the effort. [place] lifts or holds trunk or limbs and provides more than half the effort. 2-Bqmsxmzwq-wcvahp does ALL the effort. Patient does none of the effort to complete the activity. Or, the assistance of 2 or more helpers is required for the patient to complete the activity. If activity was not attempted, code reason: 7-Patient Refused. 9-Not Applicable-not attempted and the patient did not perform the activity before the current illness, exacerbation or injury. 10-Not Attempted due to Environmental Limitations-(lack of equipment, weather restraints, etc.). 88-Not Attempted due to Medical Conditions or Safety Concerns. ADL PLOF Comments Pt reports IND with ADLs and functional mobility at [facility], no AD. 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 Pt appears motivated to return home and return to work when able. Mental Status/Objective Patient Orientation: Person, Place, Time, Situation Current Glasses/Contacts: Yes Hearing Aids: No Dentures/Partials: Yes Hand Dominance: Left Upper Extremity ROM WFL, BUE shoulder flexion to approx 180 degrees Upper Extremity Coordination Slightly decreased RUE. Pt reports decreased proprioception and slightly decreased fine motor coordination. LUE WFL Upper Extremity Sensation WFL LUE RUE tingling/numbness in fingertips and decreased temperature discrimination Upper Extremity Strength LUE 5/5; LUE 4+/5. Good gross grasp bilaterally. ADL-Treatment Eating (QC): 5 (assist to cut food per pt report) Oral Hygiene (QC): 4 (CGA-SBA standing at sink) Upper Body Dressing (QC): 5 (Per pt report) Lower Body Dressing (QC): 4 (CGA) On/Off Footwear (QC): 5 (socks and tennis shoes) Toileting Hygiene (QC): 4 (CGA) Other Treatments OT evaluation complete. OT/PT cotreat due to skill of 2 clinicians required which a rehab technician could not perform in order to coordinate UE/LEs, decrease fal l risk, focus on higher level balance tasks, and due to pt's limitations in activity tolerance, dynamic standing balance, and strength. OT focused on UE placement, cues for sequencing and safety and ADLs, PT focused on LE placement, gross overall movement, transfers/mobility, and dynamic standing balance. Pt stood fro recliner with CGA, CGA-Min A transfer into bathroom and onto toilet. Pt completed toileting, CGA in stand for clothing management, CGA stand to sit onto toilet, SBA sit to stand from toilet using GBs. Pt stood at sink to wash hands and complete oral care, CGA-SBA at sink. Pt performed functional mobility to therapy gym, CGA. In order to increase dynamic standing balance and activity tolerance, pt completed "ladder golf" activity, tossing game pieces towards PVC pipe "ladder" in front of her. Pt tossed pieces using RUE without UE support on walker, then pt used FWW to retrieve objects. CGA throughout tossing and retrieval. Pt took seated rest breaks as needed. Pt returned to her room using FWW, CGA, transferring to recliner. Post tx, pt in recliner, call light in reach and all needs met. Education OT Patient Education: Correct positioning, Energy conservation, Modified ADL techniques, Progress toward Goal/Update tx plan, Purpose of tx/functional activities, Rehab process Teaching Recipient: Patient Teaching Methods: Discussion Response to Teaching: Verbalize Understanding BIMS CAM BIMS Expression of Ideas and Wants: Without Difficulty Understanding Verbal Content: Understands Brief Interview/Mental Status: Yes IRF TERRY BIMS: IRF TERRY BIMS Response (Comments) Value Repitition of Three Words Three 3 Recalls Socks Yes, No Cue Required 2 Recalls Blue Yes, No Cue Required 2 Recalls Bed No, Could Not Recall 0 Year Correct 3 Month Accurate Within 5 Days 2 Day Correct 1 Total 13 Patient Normally Able to Recal: Current Session, Location of own room, Staff Names and faces, That he/she in a [facility] Should Staff Asses. Mental St.: No Memory/Recall Ability: Current Season, Location of Own Room, Staff Names and Faces, That He[facility]She in [facility] Mental Status Change/Baseline: 0 Inattention: 0 Disorganized thinkin Altered level of consciousness: 0 OT Rn Maternity Goals Rn Maternity Goals Time Frame: May 14, 2023 Eating (QC): 6 Oral Hygiene (QC): 6 Toileting Hygiene (QC): 6 Shower/Bathe Self (QC): 6 Upper Body Dressing (QC): 6 Lower Body Dressing (QC): 6 On/Off Footwear (QC): 6 Additional Goals: 1-Demonstrate ADL Tasks, 2-Verbalize Understanding, 3- ImproveStrength/Cristine 1=Demonstrate adherence to instructed precautions during ADL tasks. 2=Patient will verbalize/demonstrate understanding of assistive devices/modifications for ADL. 3=Patient will improve strength/tolerance for activity to enable patient to perform ADL's. OT Education/Plan Problem List/Assessment Assessment: Decreased Activ Tolerance, Decreased UE Strength, Impaired Funct Balance, Impaired I ADL's, Impaired Self-Care Skills, Restricted Funct UE ROM Discharge Recommendations Plan/Recommendations: Continue POC Equpiment Recommendations-D/C: Extended Bath Bench Treatment Plan/Plan of Care Patient would benefit from OT for education, treatment and training to promote independence in ADL's, mobility, safety and/or upper extremity function for ADL's. Plan of Care: ADL Retraining, Functional Mobility, Group Exercise/Act as Ind, UE Funct Exercise/Act, UE Neuromus Re-Ed/Coord Treatment Duration: May 14, 2023 Frequency: At least 5 of 7 days/Wk (IRF) Estimated Hrs Per Day: 1.5 hours per day Agreement: Yes Rehab Potential: Good Time Start Time: 13:30 Stop Time: 14:45 DATE: Apr 28, 2023 Total Time Billed (hr/min): 75 Billed Treatment Time 8115-7851 OT eval; 5914-4993 cotreat 1, EVL (15'), ADL 2 (30'), FA 2 (30') FREDY FELIPE OT Apr 28, 2023 14:25
--- NOTE | 2023-04-28 14:32 | Physical Therapy Evaluation ---
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 Social History Home: Single Level Current Living Status: Spouse Entry Into Home: Stairs With Railing PT Steps Into Home: 3 Prior Prior Level of Function SCALE: Activities may be completed with or without assistive devices. 8-Zoxwdvngiw-vuuwukk completes the activity by him/herself with no assistance from a helper. 5-Set-up or Clean-up Assistance-helper sets up or cleans up; patient completes activity. [place] assists only prior to or following the activity. 4-Supervision or Touching Assistance-helper provides verbal cues and/or touching/steadying and/or contact guard assistance as patient completes act ivity. Assistance may be provided throughout the activity or intermittently. 3-Partial/Moderate Assistance-helper does LESS THAN HALF the effort. [place] lifts, holds or supports trunk or limbs, but provides less than half the effort. 2-Substantial/Maximal Assistance-helper does MORE THAN HALF the effort. [place] lifts or holds trunk or limbs and provides more than half the effort. 8-Xlnkfheag-ubqxnz does ALL the effort. Patient does none of the effort to complete the activity. Or, the assistance of 2 or more helpers is required for the patient to complete the activity. If activity was not attempted, code reason: 7-Patient Refused. 9-Not Applicable-not attempted and the patient did not perform the activity before the current illness, exacerbation or injury. 10-Not Attempted due to Environmental Limitations-(lack of equipment, weather restraints, etc.). 88-Not Attempted due to Medical Conditions or Safety Concerns. 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 Like to walk and hike for exercise. PT Evaluation-Current Subjective No c/o pain. States initially she could not feel either of her legs, then the numbness resolved in the (L) LE and UE. States she still has some tingling in her (R) hand/fingers and (R) thigh, as well as (R) nostril and (R) side of her mouth. She states she has no visual changes since the CVA. Pain Section J - Health Conditions 1. Rarely or not at all 2. Occasionally 3. Frequently 4. Almost constantly 8. Unable to answer Pain Effect on Sleep: 1 Pain Interference with Therapy: 1 Pain Interference w/Day-to-Day: 1 Objective Patient Orientation: Person, Place, Time, Situation ROM/Strength ROM Lower Extremities WFL in sitting. Strength Lower Extremities (R) hip flexion 3+/5 compared to 4+/5 (L) (R) knee flexion/extension 4+/5 compared to 5/5 (L) (R) ankle DF/PF 5/5 (B). Integumentary/Posture Integumentary deferred to OT Posture deferred to OT Neuromuscular (Tone, Coordination, Reflexes) Impaired motor coordination and proprioception (L) LE Sensory Vision: Wears Glasses Hearing: Functional Hand Dominance: Right Sensation Up. Extremities deferred to OT Sensation Right Lower Extremit: Impaired Sensation Left Lower Extremity: Intact Transfers Roll Left & Right (QC): 5 ((I) to (L), setup to (R) - lifted bed rail for patient, difficulty scooting (R) hip back to roll (R)) Sit to Lying (QC): 6 Lying to Sitting/Side of Bed(Q: 5 (bed rail raised for patient) Sit to Stand (QC): 3 (min (A) to FWW) Chair/Ieg-fr-Grttx Xfer(QC): 3 (min (A) /c FWW) Toilet Transfer (QC): 3 (Min (A)) Car Transfer (QC): 3 (min (A) ) Gait Does the Patient Walk?: Yes Mode of Locomotion: Walk Anticipated Mode of Locomotion: Walk Walk 10 feet (QC): 3 (min (A) /c FWW) Walk 50 ft with 2 Turns(QC): 3 (Min (A) /c FWW) Walk 150 ft (QC): 3 (min (A) /c FWW) Walking 10ft/uneven surface-QC: 3 (min (A) /c FWW) Distance: 200', (R) knee snaps into hyperextension with heel strike Gait Assistive Device: FWW Wheelchair Training Does the Pt Use a Wheelchair?: No Wheel 50 ft with 2 turns (QC): 9 Wheel 150 ft (QC): 9 Stairs 1 Step (curb) (QC): 3 (Min (A) and cues how to place FWW) 4 Steps (QC): 3 (/c (B) rails, reciprocal steps, (R) knee snaps into hyperextension) 12 Steps (QC): 3 (/c (B) rails, reciprocal steps, (R) knee snaps into hyperextension) Walking Assistive Device: Walker Balance Sitting Static: Normal Sitting Dynamic: Good Standing Static: Fair Standing Dynamic: Fair Picking up an Object (QC): 3 (CGA without a agricultural equipment operator, while holding onto a device) Special Test Comments KU Standing Balance Test: 2+. Goal: 4 Assessment/Needs Rehab Potential: Good Equipment Needs FWW at this time. PT Alf Goals Alf Goals PT Manager Real Estate Goals Time Frame: May 12, 2023 Roll Left to Right (QC): 6 Sit to Lying (QC): 6 Lying-Sitting on Side/Bed(QC): 6 Sit to Stand (QC): 6 Chair/Deb-hy-Vgpui Xfer(QC): 6 (/c FWW) Toilet/Commode Transfer (QC): 6 (/c FWW) Car Transfer (QC): 5 (/c FWW) Does the Patient Walk: Yes Walk 10 feet (QC): 6 (/c FWW) Walk 10ft-Uneven Surface(QC): 6 (/c FWW) Walk 50ft with 2 Turns (QC): 6 (/c FWW) Walk 150 ft (QC): 6 (/c FWW) Does the Pt use WC or Scooter?: No Wheel 50 feet with 2 turns (QC: 9 Wheel 150 feet: 9 1 Step (curb) (QC): 5 (/c FWW) 4 Steps (QC): 6 (/c (B) rails) 12 Steps (QC): 6 (/c (B) rails) Picking up an Object (QC): 6 (/c or /s agricultural equipment operator) KU standing balance score: 4 or greater PT Plan Problem List Problem List: Activity Tolerance, Functional Strength, Safety, Balance, Gait, Transfer, Bed Mobility Treatment/Plan Treatment Plan: Continue Plan of Care Treatment Plan: Bed Mobility, Education, Functional Activity Cristine, Functional Strength, Group Therapy, Gait, Safety, Therapeutic Exercise, Transfers Treatment Duration: May 12, 2023 Frequency: At least 5 of 7 days/Wk (IRF) Estimated Hrs Per Day: 1.5 hours per day Discharge Recommendations Therapy Discharge Recommendati: Home & Family, Post Acute PT Equpiment Recommendations-D/C: Front Wheeled Walker Time Time In: 1115 Time Out: 1130 DATE: Apr 28, 2023 Total Billed Treatment Time: 15 Total Billed Treatment EVL 15 Jeanne Wade PT Apr 28, 2023 14:31
--- NOTE | 2023-04-28 15:59 | Physical Therapy Daily Note ---
PT Daily Note-Current Subjective Pt presents sitting in recliner, B feet on floor. Pt's and friend present for tx session. PT/OT CoTx from 7910-9055 (60m). Pt denies pain. Pt agrees to PT/OT tx. Pain Section J - Health Conditions 1. Rarely or not at all 2. Occasionally 3. Frequently 4. Almost constantly 8. Unable to answer Pain Effect on Sleep: 1 Pain Interference with Therapy: 1 Pain Interference w/Day-to-Day: 1 Mental Status Patient Orientation: Person, Place, Time, Situation Transfers SCALE: Activities may be completed with or without assistive devices. 0-Yxoaebvfym-mossvvg completes the activity by him/herself with no assistance from a helper. 5-Set-up or Clean-up Assistance-helper sets up or cleans up; patient completes activity. [place] assists only prior to or following the activity. 4-Supervision or Touching Assistance-helper provides verbal cues and/or touching/steadying and/or contact guard assistance as patient completes acti vity. Assistance may be provided throughout the activity or intermittently. 3-Partial/Moderate Assistance-helper does LESS THAN HALF the effort. [place] lifts, holds or supports trunk or limbs, but provides less than half the effort. 2-Substantial/Maximal Assistance-helper does MORE THAN HALF the effort. [place] lifts or holds trunk or limbs and provides more than half the effort. 1-Kwsdoftrn-puconm does ALL the effort. Patient does none of the effort to complete the activity. Or, the assistance of 2 or more helpers is required for the patient to complete the activity. If activity was not attempted, code reason: 7-Patient Refused. 9-Not Applicable-not attempted and the patient did not perform the activity before the current illness, exacerbation or injury. 10-Not Attempted due to Environmental Limitations-(lack of equipment, weather restraints, etc.). 88-Not Attempted due to Medical Conditions or Safety Concerns. Sit to Stand (QC): 4 Chair/Vvr-gb-Sdves Xfer(QC): 4 Toilet Transfer (QC): 4 Weight Bearing Weight Bearing/Tolerated Full Weight Bearing Gait Training Does the Patient Walk?: Yes Walk 10 feet (QC): 3 (Sameer when pt starts out) Walk 50 ft with 2 Turns(QC): 4 Walk 150 ft (QC): 4 Gait Assistive Device: FWW Pt amb from room<>PT gym, ~150' /c FWW, CGA. Wheelchair Training Does the Pt Use a Wheelchair?: No Balance Picking up an Object (QC): 4 Special Test Comments Pt picked up multiple items off floor with (R) UE, and (L) UE support on FWW, CGA for vc/tc's. Neuromuscular Pt demonstrated dynamic standing balance, /s FWW, CGA for safety. Treatments PT/OT CoTx due to skill of 2 clinicians required which a rehabilitation counsellor could not perform in order to coordinate UE/LEs, decrease fall risk, focus on higher level balance tasks, and due to pt's limitations in activity tolerance, dynamic standing balance, and strength. OT focused on UE placement, cues for sequencing and safety and ADLs, PT focused on LE placement, gross overall movement, transfers/mobility, and dynamic standing balance. Pt stood from recliner with CGA, CGA-Min A transfer into bathroom and onto toilet. Pt completed toileting, CGA in stand for clothing management, CGA stand to sit onto toilet, SBA sit to stand from toilet using GBs. Pt stood at sink to wash hands and complete oral care, CGA-SBA at sink. Pt performed functional mobility to therapy gym, CGA. In order to increase dynamic standing balance and activity tolerance, pt completed "ladder golf" activity, tossing game pieces towards PVC pipe "ladder" in front of her. Pt tossed pieces using RUE without UE support on walker, then pt used FWW to retrieve objects. CGA throughout tossing and retrieval. Pt took seated rest breaks as needed. Pt returned to her room using FWW, CGA, transferring to recliner. Post tx, pt in recliner, call light in reach and all needs met. Assessment Current Status: Good Progress Pt requires some rest breaks /p standing for longer periods of time. Pt is pl easant and willing to cooperate with PT/OT. PT Retirement Goals Retirement Goals PT Tag Machine Operator Goals Time Frame: May 12, 2023 Roll Left & Right (QC): 6 Sit to Lying (QC): 6 Lying-Sitting on Side/Bed(QC): 6 Sit to Stand (QC): 6 Chair/Gqd-fy-Lznts Xfer(QC): 6 (/c FWW) Toilet Transfer (QC): 6 (/c FWW) Car Transfer (QC): 5 (/c FWW) Does the Patient Walk: Yes Walk 10 feet (QC): 6 (/c FWW) Walk 50ft with 2 Turns (QC): 6 (/c FWW) Walk 150 ft (QC): 6 (/c FWW) Walking 10ft on Uneven Surface: 6 (/c FWW) 1 Step (curb) (QC): 5 (/c FWW) 4 Steps (QC): 6 (/c (B) rails) 12 Steps (QC): 6 (/c (B) rails) Picking up an Object (QC): 6 (/c or /s learning center coordinator) Does the Pt use WC or Scooter?: No Wheel 50 feet with 2 turns (QC: 9 Wheel 150 feet: 9 PT Plan Problem List Problem List: Functional Strength, Balance Treatment/Plan Treatment Plan: Continue Plan of Care Treatment Plan: Bed Mobility, Education, Functional Activity Cristine, Functional Strength, Group Therapy, Gait, Safety, Therapeutic Exercise, Transfers Treatment Duration: May 12, 2023 Frequency: At least 5 of 7 days/Wk (IRF) Estimated Hrs Per Day: 1.5 hours per day Safety Risks/Education Patient Education: Safety Issues Teaching Recipient: Patient Teaching Methods: Discussion Response to Teaching: Verbalize Understanding Discharge Recommendations Plan Will continue progressing pt standing balance, in the (II) next tx session. Time Time In: 1345 Time Out: 1445 DATE: Apr 28, 2023 Total Billed Treatment Time: 60 Total Billed Treatment 1, FA3 (45m), NM (15m). Cotx /c OT: 7214-1642 (60m) ZO WILHELM SUPERVISOR LEAD BURNING Apr 28, 2023 15:59
--- NOTE | 2023-04-28 16:11 | ST Cognitive Linguistic Eval ---
Speech Evaluation-General Medical Diagnosis CVA Onset Date: Apr 24, 2023 Therapy Diagnosis Therapy Diagnosis: CVA Precautions Precautions/Isolations: Standard Precautions Referral Reason for Referral: Consult Medical History Pertinent Medical History: HTN Current History s/p bilateral ischemic CVA, admitted to [facility] 04/25/23 with initial symptoms of inability to move B UE/LE. She has had significant resolution of symptoms since onset. 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 Scores for all cognitive domains were WNL, with final score 4.0 WNL. Clock drawing was 13/13, fully intact. Oral Motor/Speech Production The pt reported tingling and reduced sensation of the right upper lip and right nostril. Movement of face and tongue was symmetrical, with normal coordination and ROM. Impression Cognitive function is WNL as assessed by a formal cognitive assessment (CLQT) Speech-Plan Treatment Plan Speech Therapy Treatment Plan: Discontinue ST Frequency: Modified Program (IRF) (no treatment) Estimated Hrs Per Day: Other (no treatment) Rehab Potential: Good Safety Risks/Education Teaching Recipient: Patient Teaching Methods: Discussion Response to Teaching: Verbalize Understanding Education Topics Provided: Results of testing Discharge Recommendations Home & Family Time Speech Therapy Time In: 15:05 Speech Therapy Time Out: 15:40 DATE: Apr 28, 2023 Total Billed Time: 35 Billed Treatment Time 1 MALISSA (35 MIN) ROSSI KULKARNI Apr 28, 2023 16:11
[2023-04-28 19:21] VITALS: BP 137/86
[2023-04-28] MEDS: SENNA W/DOCUSATE TABLET PO SCH (20:33)
[2023-04-28] MEDS: DOCUSATE SODIUM 100 MG CAPSULE PO SCH (20:33)
[2023-04-28] MEDS: CLOPIDOGREL 75 MG TABLET PO SCH (20:33)
[2023-04-28] MEDS: POTASSIUM CHLORIDE 10 MEQ TABLET PO SCH (20:36)
--- NOTE | 2023-04-29 05:06 | PM&R Progress Note ---
Subjective HPI/CC On Admission Date Seen by Provider: Apr 29, 2023 Time Seen by Provider: 12:00 Subjective/Events-last exam 04/29/2023: Patient doing well Noncompliant with lisinopril and Lipitor Tried to tell her it is important to take medication as ordered but she declines Reviewed meds and labs Review of Systems General: Fatigue, Malaise Objective Exam Vital Signs Vital Signs Date Time Temp Pulse Resp B/P (MAP) Pulse Ox O2 Delivery O2 Flow Rate FiO2 04/29/23 21:39 36.3 70 20 134/86 (102) 100 Room Air Capillary Refill : General Appearance: No Apparent Distress, WD/WN, Chronically ill HEENT: PERRL/EOMI, Normal ENT Inspection, Pharynx Normal Neck: Full Range of Motion, Normal Inspection, Non Tender, Supple, Carotid Bruit Respiratory: Chest Non Tender, Lungs Clear, Normal Breath Sounds, No Accessory Muscle Use, No Respiratory Distress Cardiovascular: Regular Rate, Rhythm, No Edema, No Gallop, No JVD, No Murmur, Normal Peripheral Pulses Gastrointestinal: Normal Bowel Sounds, No Organomegaly, No Pulsatile Mass, Non Tender, Soft Back: Normal Inspection, No CVA Tenderness, No Vertebral Tenderness Extremity: Normal Capillary Refill, Normal Inspection, Normal Range of Motion, Non Tender, No Calf Tenderness, No Pedal Edema Neurologic/Psychiatric: Alert, Oriented x3, Normal Mood/Affect, cut off saw tender metal II-XII Norm as Tested, Motor Weakness (right sided subtle weakness) Skin: Normal Color, Warm/Dry Lymphatic: No Adenopathy Results/Procedures Lab Laboratory Tests 04/29/23 06:00 Patient resulted labs reviewed. FIM Transfers Therapy Code Descriptions/Definitions Functional [place] Measure: 0=Not Assessed/NA 4=Minimal Assistance 1=Total Assistance 5=Supervision or Setup 2=Maximal Assistance 6=Modified [place] 3=Moderate Assistance 7=Complete IndependenceSCALE: Activities may be completed with or without assistive devices. 9-Aopxxizyqb-xtuuuuk completes the activity by him/herself with no assistance from a helper. 5-Set-up or Clean-up Assistance-helper sets up or cleans up; patient completes activity. [place] assists only prior to or following the activity. 4-Supervision or Touching Assistance-helper provides verbal cues and/or touching/steadying and/or contact guard assistance as patient completes activity. Assistance may be provided throughout the activity or intermittently. 3-Partial/Moderate Assistance-helper does LESS THAN HALF the effort. [place] lifts, holds or supports trunk or limbs, but provides less than half the effort. 2-Substantial/Maximal Assistance-helper does MORE THAN HALF the effort. [place] lifts or holds trunk or limbs and provides more than half the effort. 7-Mvmgjilql-bxaokb does ALL the effort. Patient does none of the effort to complete the activity. Or, the assistance of 2 or more helpers is required for the patient to complete the activity. If activity was not attempted, code reason: 7-Patient Refused. 9-Not Applicable-not attempted and the patient did not perform the activity before the current illness, exacerbation or injury. 10-Not Attempted due to Environmental Limitations-(lack of equipment, weather restraints, etc.). 88-Not Attempted due to Medical Conditions or Safety Concerns. Roll Left to Right (QC): 5 ((I) to (L), setup to (R) - lifted bed rail for patient, difficulty scooting (R) hip back to roll (R)) Sit to Lying (QC): 6 Sit to Stand (QC): 4 Chair/Ckv-qo-Hcvii Xfer(QC): 4 Car Transfer (QC): 3 (min (A) ) Gait Training Does the Patient Walk?: Yes Walk 10 feet (QC): 3 (Sameer when pt starts out) Walk 50 ft with 2 Turns(QC): 4 Walk 150 ft (QC): 4 Walking 10ft/uneven surface-QC: 3 (min (A) /c FWW) Gait Assistive Device: FWW Wheelchair Training Does the Pt Use a Wheelchair?: No Wheel 50 ft with 2 turns (QC): 9 Wheel 150 ft (QC): 9 Stair Training 1 Step (curb) (QC): 3 (Min (A) and cues how to place FWW) 4 Steps (QC): 3 (/c (B) rails, reciprocal steps, (R) knee snaps into hyperextension) 12 Steps (QC): 3 (/c (B) rails, reciprocal steps, (R) knee snaps into hyperextension) Balance Picking up an Object (QC): 4 ADL-Treatment Eating (QC): 5 (assist to cut food per pt report) Oral Hygiene (QC): 4 (CGA-SBA standing at sink) Upper Body Dressing (QC): 5 (Per pt report) Lower Body Dressing (QC): 4 (CGA) On/Off Footwear (QC): 5 (socks and tennis shoes) Toileting Hygiene (QC): 4 (CGA) Assessment/Plan Assessment and Plan Assess & Plan/Chief Complaint Assessment: CVA bilateral internal capsules Right sided weakness and numbness HTN HLP Smoker Non-compliance with medications plan: PT OT Home meds Monitor closely 04/29/2023: Supportive care Monitor closely (1) CVA (cerebral vascular accident) NICOLLE MEJÍA DO Apr 29, 2023 05:06
--- NOTE | 2023-04-29 05:07 | Individualized Plan of Care ---
Individualized Plan of Care Rehab Nursing IPOC Order Admission Date Apr 28, 2023 at 11:15 Current Orders Orders Admission Arrival Bed Request (04/28/23 11:23) General/Regular (04/28/23 Lunch) Admission Order(Inpt,Obs,Sdc) (04/28/23 11:51) Vital Signs: Per Unit Policy ( 08,16,00 (04/28/23 11:51) Steve Hose 09,21 (04/28/23 11:51) Sequential Compression Device [id number] (04/28/23 11:51) Ct Technician-Inpt Rehab Con (04/28/23 11:51) Rehab Nursing Orders-Ipoc (04/28/23 11:51) Physical Therapy Rehab Orders (04/28/23 11:51) Occupational Therapy Rehab Ord (04/28/23 11:51) Speech Therapy Rehab Orders (04/28/23 11:51) Cbc And Automated Diff (04/29/23 06:00) Comprehensive Metabolic Panel (04/29/23 06:00) Precautions (Aru) (04/28/23 11:51) Weekly Weight WEEK (04/28/23 11:51) Rehab-Intensity Of Therapy (04/28/23 11:51) Initiate Admission Nursing Pro .admission (04/28/23 11:51) Alprazolam Tablet (Alprazolam Tablet) (04/28/23 12:00) Calcium Carbonate Chew Tablet (Calcium C (04/28/23 12:00) Diphenhydramine Tablet (Diphenhydramine (04/28/23 12:00) Docusate Sodium Capsule (Docusate Sodium (04/28/23 21:00) Docusate Sodium Capsule (Docusate Sodium (04/28/23 12:00) Bisacodyl Suppository (Bisacodyl Supposi (04/28/23 12:00) Lactulose Oral Solution (Enulose Oral So (04/28/23 12:00) Na Phos/Na Biphos Adult Enema (Na Phos/N (04/28/23 12:00) Guaifenesin/Codeine Syrup (Guaifenesin/C (04/28/23 12:00) Loperamide Capsule (Loperamide Capsule) (04/28/23 12:00) Melatonin Tablet (Melatonin Tablet) (04/28/23 12:00) Polyethylene Glycol Powder (Polyethylen (04/28/23 21:00) Ondansetron Oral Dissolve Tab (Ondanset (04/28/23 12:00) Senna W/Docusate Tablet (Senna W/Docusat (04/28/23 21:00) Acetaminophen Tablet (Acetaminophen Ta (04/28/23 12:00) Initiate Admission Nursing Pro .admission (04/28/23 11:51) Aspirin Chewable Tablet (Aspirin Chewabl (04/29/23 09:00) Atorvastatin Tablet (Atorvastatin Tablet (04/29/23 09:00) Lisinopril Tablet (Lisinopril Tablet) (04/29/23 09:00) Potassium Chloride (Tablet) (Potassium C (04/28/23 21:00) Amlodipine Tablet (Amlodipine Tablet) (05/04/23 09:00) Clonidine Tablet (Clonidine Tablet) (05/04/23 09:00) Patient Visit (04/28/23 ) Pt Eval Moderate Complexity (04/28/23 ) Clopidogrel Tablet (Clopidogrel Tablet) (04/28/23 21:00) Code/Resuscitation (04/29/23 01:04) Patient Visit (04/28/23 ) Functional Activities, Ea 15 (04/28/23 ) Ex Neuromuscular, Ea 15 Min (04/28/23 ) Patient Visit (04/28/23 ) Speech Sound Lang Comp (04/28/23 ) Potassium Chloride (Tablet) (Potassium C (04/30/23 07:00) Patient Visit (04/29/23 ) Functional Activities, Ea 15 (04/29/23 ) Ex Neuromuscular, Ea 15 Min (04/29/23 ) Exercise Therap, Ea 15 Min (04/29/23 ) Rehab Nursing Orders: Ongoing Assess. of Cognitive Status, Ongoing Assess. of Function Status, Bladder Management, Bladder Scan, Bladder Training, Bowel Management, Bowel Training, Disease Management & Educaiton, DVT Prophylaxis, Fall Prevention, Fluid/Electrolyte/Nutrition Mgmt, Infection Prevention, Medication Management & Education, Management of Risks & Complications, Nutrition Management, Pain Management, Patient/Family Support, Safety Management Intensity of Therapy to be met Patient to be seen: Min.3h per day/5 of 7d PT IPOC Problem List: Functional Strength, Balance Treatment Plan: Continue Plan of Care Bed Mobility, Education, Functional Activity Cristine, Functional Strength, Group Therapy, Gait, Safety, Therapeutic Exercise, Transfers Treatment Duration: May 12, 2023 Frequency: At least 5 of 7 days/Wk (IRF) Estimated Hrs Per Day: 1.5 hours per day OT IPOC Problems: Decreased Activ Tolerance, Decreased UE Strength, Impaired Funct Balance, Impaired I ADL's, Impaired Self-Care Skills, Restricted Funct UE ROM OT Treatment, Training and Edu: Yes Plan of Care: ADL Retraining, Functional Mobility, Group Exercise/Act as Ind, UE Funct Exercise/Act, UE Neuromus Re-Ed/Coord Treatment Duration: May 14, 2023 Frequency: At least 5 of 7 days/Wk (IRF) Estimated Hrs Per Day: 1.[address] IPOC Speech Therapy Treatment Plan: Discontinue ST Treatment Duration: Apr 29, 2023 Frequency: Modified Program (IRF) (no treatment) Estimated Hrs Per Day: Other (no treatment) Ct Technician/Case Mgmt Ct Technician/Case Managemen: Discharge Planning Dietitian/Grey Goods Marker Dietitian/Grey Goods Marker to monitor nutritional status and make changes and/or recommendations as needed and work with speech pathology on dietary upgrades as the occur. Physician IPOC Medical Issues being managed closely and that require the 24 hour availability of a physician: Recent CVA without source identified maintained on CVA protocol meds with patient noncompliance with recommendations will be at high risk for extension of stroke Medical Issues: Bowel/Bladder Function, DVT Prophylaxis, Falls Precautions, Fluid/Electrolyte/Nutrition Balance, Infection Protection, Pain Management Brief Synthesis of Preadmission Screen, Post-Admission Evaluation, and Therapy Evaluations: PT and OT will focus on regaining function with use of assistive devices speech therapy will help through thought processes due to stroke residual that are d eficient Medical Prognosis: Good Anticipated Length of Stay: 7 days NICOLLE MEJÍA DO Apr 29, 2023 05:07
[2023-04-29 06:23] LABS: BASOPHILS # (AUTO) 0.1 10^3/uL (0.0-0.1); BASOPHILS % (AUTO) 2 % (0-10); EOSINOPHILS # (AUTO) 0.2 10^3/uL (0.0-0.3); EOSINOPHILS % (AUTO) 4 % (0-10); HEMATOCRIT 39 % (35-52); HEMOGLOBIN 13.3 g/dL (11.5-16.0); LYMPHOCYTES # (AUTO) 2.2 10^3/uL (1.0-4.0); LYMPHOCYTES % (AUTO) 38 % (12-44); MEAN CORPUSCULAR HEMOGLOBIN 31 pg (25-34); MEAN CORPUSCULAR HGB CONC 34 g/dL (32-36); MEAN CORPUSCULAR VOLUME 91 fL (80-99); MEAN PLATELET VOLUME 9.3 fL (9.0-12.2); MONOCYTES # (AUTO) 0.4 10^3/uL (0.0-1.0); MONOCYTES % (AUTO) 8 % (0-12); NEUTROPHILS # (AUTO) 2.8 10^3/uL (1.8-7.8); NEUTROPHILS % (AUTO) 49 % (42-75); PLATELET COUNT 224 10^3/uL (130-400); WHITE BLOOD COUNT 5.8 10^3/uL (4.3-11.0)
[2023-04-29 06:39] LABS: ALBUMIN 3.8 GM/DL (3.2-4.5)
[2023-04-29 06:40] LABS: CALCIUM 9.2 MG/DL (8.5-10.1)
[2023-04-29 06:41] LABS: TOTAL PROTEIN 6.5 GM/DL (6.4-8.2)
[2023-04-29 06:43] LABS: BILIRUBIN,TOTAL 0.6 MG/DL (0.1-1.0)
[2023-04-29 06:45] LABS: CREATININE SERUM 0.73 MG/DL (0.60-1.30)
[2023-04-29 07:46] VITALS: BP 124/70
--- NOTE | 2023-04-29 08:49 | Occupational Ther Daily Note ---
OT Current Status-Daily Note Subjective Pt agreeable to OT Tx. ADL-Treatment Therapy Code Descriptions/Definitions Functional [place] Measure: 0=Not Assessed/NA 4=Minimal Assistance 1=Total Assistance 5=Supervision or Setup 2=Maximal Assistance 6=Modified [place] 3=Moderate Assistance 7=Complete IndependenceSCALE: Activities may be completed with or without assistive devices. 0-Hrlnotmmmv-zewqsmn completes the activity by him/herself with no assistance from a helper. 5-Set-up or Clean-up Assistance-helper sets up or cleans up; patient completes activity. [place] assists only prior to or following the activity. 4-Supervision or Touching Assistance-helper provides verbal cues and/or touching/steadying and/or contact guard assistance as patient completes activity. Assistance may be provided throughout the activity or intermittently. 3-Partial/Moderate Assistance-helper does LESS THAN HALF the effort. [place] lifts, holds or supports trunk or limbs, but provides less than half the effort. 2-Substantial/Maximal Assistance-helper does MORE THAN HALF the effort. [place] lifts or holds trunk or limbs and provides more than half the effort. 2-Uczfhvobo-hyxzlx does ALL the effort. Patient does none of the effort to complete the activity. Or, the assistance of 2 or more helpers is required for the patient to complete the activity. If activity was not attempted, code reason: 7-Patient Refused. 9-Not Applicable-not attempted and the patient did not perform the activity before the current illness, exacerbation or injury. 10-Not Attempted due to Environmental Limitations-(lack of equipment, weather restraints, etc.). 88-Not Attempted due to Medical Conditions or Safety Concerns. Eating (QC): 5 Oral Hygiene (QC): 4 (supervision standing at sink.) Shower/Bathe Self (QC): 4 (SBA. Pt able to wash/dry all parts.) Upper Body Dressing (QC): 5 Lower Body Dressing (QC): 4 (Supervison in standing) On/Off Footwear: 5 Other Treatment Pt in recliner, stood with SBA, then used FWW to transfer into bathroom and onto MN, CGA. Pt doffed clothes, completed shower, then donned clothes as outlined above. Pt used FWW to stand at sink to complete grooming tasks with SBA. Pt returned to recliner, SBA-CGA using FWW, transferring into recliner with SBA. Neuromuscular reeducation tasks complete with focus on increasing R fine motor strength and coordination. Pt opened creamer, sugar and spoon packets in order to prepare coffee to her preference. Pt required increased time and concentrati on, but able to complete without spilling creamer/sugar. OT provided pt with mod-heavy resistance (Green) theraputty. Pt able to use RUE to locate 20 beads and remove beads. pt then used tweezers to roll picker and place 6 beads from table into container with RUE, pt dropped 1 beads during task. Post tx, pt in recliner, call light in reach and all needs met. Education OT Patient Education: Correct positioning, Energy conservation, Modified ADL techniques, Progress toward Goal/Update tx plan, Purpose of tx/functional activities, Rehab process Teaching Recipient: Patient Teaching Methods: Discussion Response to Teaching: Verbalize Understanding OT Strawhat Inspector And Packer Goals Senior Care Goals Time Frame: May 14, 2023 Acute change in mental status: 0 Inattention: 0 Disorganized thinkin Altered level of consciousness: 0 Eating (QC): 6 Oral Hygiene (QC): 6 Toileting Hygiene (QC): 6 Shower/Bathe Self (QC): 6 Upper Body Dressing (QC): 6 Lower Body Dressing (QC): 6 On/Off Footwear (QC): 6 Additional Goals: 1-Demonstrate ADL Tasks, 2-Verbalize Understanding, 3- ImproveStrength/Cristine 1=Demonstrate adherence to instructed precautions during ADL tasks. 2=Patient will verbalize/demonstrate understanding of assistive devices/modifications for ADL. 3=Patient will improve strength/tolerance for activity to enable patient to perform ADL's. OT Education/Plan Problem List/Assessment Assessment: Decreased Activ Tolerance, Decreased UE Strength, Impaired Coordination, Impaired Funct Balance, Impaired I ADL's Discharge Recommendations Plan/Recommendations: Continue POC Treatment Plan/Plan of Care Patient would benefit from OT for education, treatment and training to promote independence in ADL's, mobility, safety and/or upper extremity function for ADL's. Plan of Care: ADL Retraining, Functional Mobility, Group Exercise/Act as Ind, UE Funct Exercise/Act, UE Neuromus Re-Ed/Coord Treatment Duration: May 14, 2023 Frequency: At least 5 of 7 days/Wk (IRF) Estimated Hrs Per Day: 1.5 hours per day Agreement: Yes Rehab Potential: Good Time Start Time: 07:15 Stop Time: 08:45 DATE: Apr 29, 2023 Total Time Billed (hr/min): 90 Billed Treatment Time 1, ADL 4 (60'), NM 2 (30') FREDY FELIPE OT Apr 29, 2023 08:49
[2023-04-29] MEDS: SENNA W/DOCUSATE TABLET PO SCH ×2 (09:47→20:47)
[2023-04-29] MEDS: POTASSIUM CHLORIDE 10 MEQ TABLET PO SCH (09:47)
[2023-04-29] MEDS: ASPIRIN 81 MG CHEWABLE TABLET PO SCH (09:47)
[2023-04-29] MEDS: DOCUSATE SODIUM 100 MG CAPSULE PO SCH ×2 (09:47→20:47)
--- NOTE | 2023-04-29 16:26 | Physical Therapy Daily Note ---
PT Daily Note-Current Subjective Pt presents sitting in recliner with B feet on floor. Pt denies pain but states her neck (SCM area) is tight. Pt agrees to tx. Pain Section J - Health Conditions 1. Rarely or not at all 2. Occasionally 3. Frequently 4. Almost constantly 8. Unable to answer Pain Effect on Sleep: 1 Pain Interference with Therapy: 1 Pain Interference w/Day-to-Day: 1 Mental Status Patient Orientation: Person, Place, Time, Situation Transfers SCALE: Activities may be completed with or without assistive devices. 2-Eiznhudqfv-fglvgpj completes the activity by him/herself with no assistance from a helper. 5-Set-up or Clean-up Assistance-helper sets up or cleans up; patient completes activity. [place] assists only prior to or following the activity. 4-Supervision or Touching Assistance-helper provides verbal cues and/or touching/steadying and/or contact guard assistance as patient completes activity. Assistance may be provided throughout the activity or intermittently. 3-Partial/Moderate Assistance-helper does LESS THAN HALF the effort. [place] lifts, holds or supports trunk or limbs, but provides less than half the effort. 2-Substantial/Maximal Assistance-helper does MORE THAN HALF the effort. [place] lifts or holds trunk or limbs and provides more than half the effort. 2-Jtbtwrdte-vgguei does ALL the effort. Patient does none of the effort to complete the activity. Or, the assistance of 2 or more helpers is required for the patient to complete the activity. If activity was not attempted, code reason: 7-Patient Refused. 9-Not Applicable-not attempted and the patient did not perform the activity before the current illness, exacerbation or injury. 10-Not Attempted due to Environmental Limitations-(lack of equipment, weather restraints, etc.). 88-Not Attempted due to Medical Conditions or Safety Concerns. Roll Left & Right (QC): 6 Sit to Lying (QC): 6 Lying to Sitting/Side of Bed(Q: 6 Sit to Stand (QC): 4 (vc's for hand placement) Chair/Fto-sk-Ekkjo Xfer(QC): 4 (vc's for hand placement) Weight Bearing Weight Bearing/Tolerated Full Weight Bearing Gait Training Does the Patient Walk?: Yes Walk 10 feet (QC): 6 Walk 50 ft with 2 Turns(QC): 6 Walk 150 ft (QC): 4 Gait Assistive Device: FWW Pt amb from room around ARU and to PT gym ~360' /c FWW, SBA for vc's to slow down. Wheelchair Training Does the Pt Use a Wheelchair?: No Exercises THER EX: Pt performed (R) SCM stretch x 15s x 2 reps. Supine manual B LE PNF HS stretch x 3 reps. Supine B LE x 10: SLR, Hip ADD /c ball, Bridges x 5, Bridges /c ball x5, SLR /c ER x 5, for VMO strengthening. Sitting B LE x 5 with red ther bad (HEP): LAQ, HS curls, Hip ABD, Hip ADD NuStep Minutes: 20 NuStep Workload: 3 Neuromuscular Pt demonstrated good dynamic standing balance, /c B UE support in (II), while conducting a (B) Knee Extension/Quad activity to improve functional performance and stability in R LE. Treatments Pt amb from room, around ARU and to PT gym with FWW, SBA. Pt conducted supine stretches and exercises to improve R LE Quads, HS, ABD & ADD function and stability. Pt demonstrated good dynamic standing balance in (II) with B UE support. Pt amb from PT gym back to room. Pt performed sitting exercises with red ther band. Post tx with pt in recliner, call light within reach and all needs met. Assessment Current Status: Good Progress Pt amb more today than previous tx sessions. Pt willing and cooperative to conduct PT to improve skills and strength. PT Trombone Slide Assembler Goals Alf Goals PT Trombone Slide Assembler Goals Time Frame: May 12, 2023 Roll Left & Right (QC): 6 Sit to Lying (QC): 6 Lying-Sitting on Side/Bed(QC): 6 Sit to Stand (QC): 6 Chair/Rkz-qu-Fmdja Xfer(QC): 6 (/c FWW) Toilet Transfer (QC): 6 (/c FWW) Car Transfer (QC): 5 (/c FWW) Does the Patient Walk: Yes Walk 10 feet (QC): 6 (/c FWW) Walk 50ft with 2 Turns (QC): 6 (/c FWW) Walk 150 ft (QC): 6 (/c FWW) Walking 10ft on Uneven Surface: 6 (/c FWW) 1 Step (curb) (QC): 5 (/c FWW) 4 Steps (QC): 6 (/c (B) rails) 12 Steps (QC): 6 (/c (B) rails) Picking up an Object (QC): 6 (/c or /s certified medical coder) Does the Pt use WC or Scooter?: No Wheel 50 feet with 2 turns (QC: 9 Wheel 150 feet: 9 PT Plan Problem List Problem List: Functional Strength Treatment/Plan Treatment Plan: Continue Plan of Care Treatment Plan: Bed Mobility, Education, Functional Activity Cristine, Functional Strength, Group Therapy, Gait, Safety, Therapeutic Exercise, Transfers Treatment Duration: May 12, 2023 Frequency: At least 5 of 7 days/Wk (IRF) Estimated Hrs Per Day: 1.5 hours per day Safety Risks/Education Patient Education: Issued Written HEP Teaching Recipient: Patient Teaching Methods: Demonstration, Discussion Response to Teaching: Verbalize Understanding, Return Demonstration Discharge Recommendations Plan Continue with tx per pt POC. Time Time In: 1335 Time Out: 1505 DATE: Apr 29, 2023 Total Billed Treatment Time: 90 Total Billed Treatment 1, NM2 (30m), EX3 (45m), FA (15m) [facility] Apr 29, 2023 16:26
[2023-04-29] MEDS: CLOPIDOGREL 75 MG TABLET PO SCH (21:03)
[2023-04-29 21:39] VITALS: BP 134/86
[2023-04-30] MEDS: POTASSIUM CHLORIDE 10 MEQ TABLET PO SCH (06:39)
[2023-04-30 07:40] VITALS: BP 126/77
[2023-04-30] MEDS: SENNA W/DOCUSATE TABLET PO SCH ×2 (09:18→20:00)
[2023-04-30] MEDS: ASPIRIN 81 MG CHEWABLE TABLET PO SCH (09:19)
[2023-04-30] MEDS: DOCUSATE SODIUM 100 MG CAPSULE PO SCH ×2 (09:19→20:03)
--- NOTE | 2023-04-30 11:49 | Occupational Ther Daily Note ---
OT Current Status-Daily Note Subjective Pt agreeable to OT Tx. Mental Status/Objective Patient Orientation: Normal For Age ADL-Treatment Therapy Code Descriptions/Definitions Functional [place] Measure: 0=Not Assessed/NA 4=Minimal Assistance 1=Total Assistance 5=Supervision or Setup 2=Maximal Assistance 6=Modified [place] 3=Moderate Assistance 7=Complete IndependenceSCALE: Activities may be completed with or without assistive devices. 1-Vdvxxkydvg-gkdaovn completes the activity by him/herself with no assistance from a helper. 5-Set-up or Clean-up Assistance-helper sets up or cleans up; patient completes activity. [place] assists only prior to or following the activity. 4-Supervision or Touching Assistance-helper provides verbal cues and/or touching/steadying and/or contact guard assistance as patient completes activity . Assistance may be provided throughout the activity or intermittently. 3-Partial/Moderate Assistance-helper does LESS THAN HALF the effort. [place] lifts, holds or supports trunk or limbs, but provides less than half the effort. 2-Substantial/Maximal Assistance-helper does MORE THAN HALF the effort. [place] lifts or holds trunk or limbs and provides more than half the effort. 6-Huptjfecs-rwbuso does ALL the effort. Patient does none of the effort to complete the activity. Or, the assistance of 2 or more helpers is required for the patient to complete the activity. If activity was not attempted, code reason: 7-Patient Refused. 9-Not Applicable-not attempted and the patient did not perform the activity before the current illness, exacerbation or injury. 10-Not Attempted due to Environmental Limitations-(lack of equipment, weather restraints, etc.). 88-Not Attempted due to Medical Conditions or Safety Concerns. Eating (QC): 6 (IND per pt report with breakfast) Oral Hygiene (QC): 6 Upper Body Dressing (QC): 5 Lower Body Dressing (QC): 5 On/Off Footwear: 5 Other Treatment Pt agreeable to OT Tx. Pt changed clothes after set up assistance. Pt used FWW to transfer into bathroom, stood at sink for grooming tasks, IND. Pt performed functional mobility to therapy gym, SBA using FWW. OT tx focused on neuromuscular reeducation RUE. Pt completed x10 mins on arm bike, 15-20 watt resistance in order to increase proprioceptive input to RUE, and increase strength. Pt then completed various fine motor coordination tasks using RUE, including picking up and placing objects using tweezers in R hand, stringing beads using R hand, and picking up and manipulating 1/4" pegs. Pt able to complete tasks with increased concentration and time. Pt returned to her room using FWW, SBA, transferring to recliner. Post tx, pt in recliner, call light in reach and all needs met. Education OT Patient Education: Correct positioning, Disease process, Modified ADL techniques, Progress toward Goal/Update tx plan, Purpose of tx/functional activities, Rehab process Teaching Recipient: Patient Teaching Methods: Discussion Response to Teaching: Verbalize Understanding OT [facility] Goals Lip[place] Sprayer Goals Time Frame: May 14, 2023 Acute change in mental status: 0 Inattention: 0 Disorganized thinkin Altered level of consciousness: 0 Eating (QC): 6 Oral Hygiene (QC): 6 Toileting Hygiene (QC): 6 Shower/Bathe Self (QC): 6 Upper Body Dressing (QC): 6 Lower Body Dressing (QC): 6 On/Off Footwear (QC): 6 Additional Goals: 1-Demonstrate ADL Tasks, 2-Verbalize Understanding, 3- ImproveStrength/Cristine 1=Demonstrate adherence to instructed precautions during ADL tasks. 2=Patient will verbalize/demonstrate understanding of assistive devices/modifications for ADL. 3=Patient will improve strength/tolerance for activity to enable patient to perform ADL's. OT Education/Plan Problem List/Assessment Assessment: Decreased Activ Tolerance, Decreased UE Strength, Impaired Coordination, Impaired Funct Balance, Impaired I ADL's, Impaired Self-Care Skills Discharge Recommendations Plan/Recommendations: Continue POC Treatment Plan/Plan of Care Patient would benefit from OT for education, treatment and training to promote independence in ADL's, mobility, safety and/or upper extremity function for ADL's. Plan of Care: ADL Retraining, Functional Mobility, Group Exercise/Act as Ind, UE Funct Exercise/Act, UE Neuromus Re-Ed/Coord Treatment Duration: May 14, 2023 Frequency: At least 5 of 7 days/Wk (IRF) Estimated Hrs Per Day: 1.5 hours per day Agreement: Yes Rehab Potential: Good Time Start Time: 07:30 Stop Time: 08:45 DATE: Apr 30, 2023 Total Time Billed (hr/min): 75 Billed Treatment Time 1, ADL 2 (30'), NM 3 (45') FREDY FELIPE OT Apr 30, 2023 11:49
--- NOTE | 2023-04-30 12:49 | PM&R Progress Note ---
Subjective HPI/CC On Admission Date Seen by Provider: Apr 30, 2023 Time Seen by Provider: 12:00 Subjective/Events-last exam 04/30/2023: Improved overall Still very paranoid about BP meds No falls No pain 04/29/2023: Patient doing well Noncompliant with lisinopril and Lipitor Tried to tell her it is important to take medication as ordered but she declines Reviewed meds and labs Review of Systems General: Fatigue, Malaise Objective Exam Vital Signs Vital Signs Date Time Temp Pulse Resp B/P (MAP) Pulse Ox O2 Delivery O2 Flow Rate FiO2 04/30/23 20:00 Room Air 04/30/23 19:44 35.9 72 18 125/75 (92) 96 Capillary Refill : General Appearance: No Apparent Distress, WD/WN, Chronically ill HEENT: PERRL/EOMI, Normal ENT Inspection, Pharynx Normal Neck: Full Range of Motion, Normal Inspection, Non Tender, Supple, Carotid Bruit Respiratory: Chest Non Tender, Lungs Clear, Normal Breath Sounds, No Accessory Muscle Use, No Respiratory Distress Cardiovascular: Regular Rate, Rhythm, No Edema, No Gallop, No JVD, No Murmur, Normal Peripheral Pulses Gastrointestinal: Normal Bowel Sounds, No Organomegaly, No Pulsatile Mass, Non Tender, Soft Back: Normal Inspection, No CVA Tenderness, No Vertebral Tenderness Extremity: Normal Capillary Refill, Normal Inspection, Normal Range of Motion, Non Tender, No Calf Tenderness, No Pedal Edema Neurologic/Psychiatric: Alert, Oriented x3, Normal Mood/Affect, skiver welt end II-XII Norm as Tested, Motor Weakness (right sided subtle weakness) Skin: Normal Color, Warm/Dry Lymphatic: No Adenopathy Results/Procedures Lab Patient resulted labs reviewed. FIM Transfers Therapy Code Descriptions/Definitions Functional [place] Measure: 0=Not Assessed/NA 4=Minimal Assistance 1=Total Assistance 5=Supervision or Setup 2=Maximal Assistance 6=Modified [place] 3=Moderate Assistance 7=Complete IndependenceSCALE: Activities may be completed with or without assistive devices. 8-Fgubtlogps-dgnztux completes the activity by him/herself with no assistance from a helper. 5-Set-up or Clean-up Assistance-helper sets up or cleans up; patient completes activity. [place] assists only prior to or following the activity. 4-Supervision or Touching Assistance-helper provides verbal cues and/or touching/steadying and/or contact guard assistance as patient completes activity. Assistance may be provided throughout the activity or intermittently. 3-Partial/Moderate Assistance-helper does LESS THAN HALF the effort. [place] lifts, holds or supports trunk or limbs, but provides less than half the effort. 2-Substantial/Maximal Assistance-helper does MORE THAN HALF the effort. [place] lifts or holds trunk or limbs and provides more than half the effort. 2-Zfbhdalmw-jmhjsg does ALL the effort. Patient does none of the effort to complete the activity. Or, the assistance of 2 or more helpers is required for the patient to complete the activity. If activity was not attempted, code reason: 7-Patient Refused. 9-Not Applicable-not attempted and the patient did not perform the activity before the current illness, exacerbation or injury. 10-Not Attempted due to Environmental Limitations-(lack of equipment, weather restraints, etc.). 88-Not Attempted due to Medical Conditions or Safety Concerns. Roll Left to Right (QC): 6 Sit to Lying (QC): 6 Sit to Stand (QC): 4 (vc's for hand placement) Chair/Xzi-ia-Qusqc Xfer(QC): 4 (vc's for hand placement) Car Transfer (QC): 3 (min (A) ) Gait Training Does the Patient Walk?: Yes Walk 10 feet (QC): 6 Walk 50 ft with 2 Turns(QC): 6 Walk 150 ft (QC): 4 Walking 10ft/uneven surface-QC: 3 (min (A) /c FWW) Gait Assistive Device: FWW Wheelchair Training Does the Pt Use a Wheelchair?: No Wheel 50 ft with 2 turns (QC): 9 Wheel 150 ft (QC): 9 Stair Training 1 Step (curb) (QC): 3 (Min (A) and cues how to place FWW) 4 Steps (QC): 3 (/c (B) rails, reciprocal steps, (R) knee snaps into hyperextension) 12 Steps (QC): 3 (/c (B) rails, reciprocal steps, (R) knee snaps into hyperextension) Balance Picking up an Object (QC): 4 ADL-Treatment Eating (QC): 6 (IND per pt report with breakfast) Oral Hygiene (QC): 6 Shower/Bathe Self (QC): 4 (SBA. Pt able to wash/dry all parts.) Upper Body Dressing (QC): 5 Lower Body Dressing (QC): 5 On/Off Footwear (QC): 5 Toileting Hygiene (QC): 4 (CGA) Assessment/Plan Assessment and Plan Assess & Plan/Chief Complaint Assessment: CVA bilateral internal capsules Right sided weakness and numbness HTN HLP Smoker Non-compliance with medications plan: PT OT Home meds Monitor closely 04/29/2023: Supportive care Monitor closely 04/30/2023: Tried to reassure Compliance with meds poor (1) CVA (cerebral vascular accident) NICOLLE MEJÍA DO Apr 30, 2023 12:49
--- NOTE | 2023-04-30 12:54 | Progress Note ---
DUNG EGAN 04/30/23 1254: Progress Note Mrs. Queen presented on 04/28 s/p CVA. She reports less weakness and numbness tingling in her fingers and toes. On admission 04/28, she was able to perform lower body dressing, toileting hygiene, and oral oral hygiene with CGA. She was able to eat, put on footwear, and upper body dressing independently, requiring clean up/ set up assistance. She is able to independently roll, sit to lying transfer, and lying to sitting transfer with the assitance of bed rail. She required min assist for sit to stand, bed to chair transfer, toilet transfer, and car transfer. On admission she was able to 200ft with FWW and minimal assistance. She had normal static sitting balance, good dynamic sitting, and fair standing balance. Today Mrs. Queen is eating and performing oral hygiene independently, and only requires setup/cleanup help with body dressing and footwear. For her transfers, she is independent with rolls, sit to lying, lying to sitting, and only requires verbal cues for sit to stand and bed to chair transfers. She is now able to walk 50ft with 2 turns independently, but did use a FWW for ambulation beyond that. In total she ambulates over 360 ft to the PT gym. She did require some verbal cues to slow down. She had good dynamic standing balance. SAHRA SANCHEZ DO 05/01/23 0709: Supervisory-Addendum Brief Verification & Attestation Participated in pt care: history, MDM, physical Personally performed: exam, history, MDM, supervision of care Care discussed with: Medical Student Procedures: n/a Results interpretation: Verified all documentation Verification and Attestation of Medical Student E/M Service A medical student performed and documented this service in my presence. I reviewed and verified all information documented by the medical student and made modifications to such information, when appropriate. I personally performed the physical exam and medical decision making. Sahra Sanchez May 01, 2023,07:09 DUNG EGAN Apr 30, 2023 12:54 SAHRA SANCHEZ DO May 01, 2023 07:09
[2023-04-30] MEDS ORDERED: DIPH25TA65 PO (12:59)
[2023-04-30] MEDS ORDERED: ACET-2267 PO (12:59)
[2023-04-30] MEDS ORDERED: AMLO-251 PO (13:03)
[2023-04-30] MEDS ORDERED: CLN.1T PO (13:03)
--- NOTE | 2023-04-30 13:58 | Occupational Ther Daily Note ---
OT Current Status-Daily Note Subjective Pt agreeable to OT tx. ADL-Treatment Therapy Code Descriptions/Definitions Functional [place] Measure: 0=Not Assessed/NA 4=Minimal Assistance 1=Total Assistance 5=Supervision or Setup 2=Maximal Assistance 6=Modified [place] 3=Moderate Assistance 7=Complete IndependenceSCALE: Activities may be completed with or without assistive devices. 6-Knltarxsux-nqcvoay completes the activity by him/herself with no assistance from a helper. 5-Set-up or Clean-up Assistance-helper sets up or cleans up; patient completes activity. [place] assists only prior to or following the activity. 4-Supervision or Touching Assistance-helper provides verbal cues and/or touching/steadying and/or contact guard assistance as patient completes activity. Assistance may be provided throughout the activity or intermittently. 3-Partial/Moderate Assistance-helper does LESS THAN HALF the effort. [place] lifts, holds or supports trunk or limbs, but provides less than half the effort. 2-Substantial/Maximal Assistance-helper does MORE THAN HALF the effort. [place] lifts or holds trunk or limbs and provides more than half the effort. 3-Hfrupspsh-alvezr does ALL the effort. Patient does none of the effort to complete the activity. Or, the assistance of 2 or more helpers is required for the patient to complete the activity. If activity was not attempted, code reason: 7-Patient Refused. 9-Not Applicable-not attempted and the patient did not perform the activity before the current illness, exacerbation or injury. 10-Not Attempted due to Environmental Limitations-(lack of equipment, weather restraints, etc.). 88-Not Attempted due to Medical Conditions or Safety Concerns. Toileting Hygiene (QC): 4 (SBA) Toilet Transfer (QC): 4 (SBA) Other Treatment OT tx with focus on neuromuscular reeducation RUE. Pt stood from recliner, SBA, used FWW to transfer to toilet. Pt completed toileting, SBA, then stood at sink to complete oral care, SBA. Pt used FWW to perform functional mobility to [facility] common area. Pt completed UE reaching task, 1lb wrist weight RUE. Pt completed UE reaching task in various planes on table top, ~35', rest breaks as needed. Post tx, pt seated in [facility] common area, PT present, all needs met. OT Sheriff Officer Goals Snf Goals Time Frame: May 14, 2023 Acute change in mental status: 0 Inattention: 0 Disorganized thinkin Altered level of consciousness: 0 Eating (QC): 6 Oral Hygiene (QC): 6 Toileting Hygiene (QC): 6 Shower/Bathe Self (QC): 6 Upper Body Dressing (QC): 6 Lower Body Dressing (QC): 6 On/Off Footwear (QC): 6 Additional Goals: 1-Demonstrate ADL Tasks, 2-Verbalize Understanding, 3-ImproveStrength/Cristine 1=Demonstrate adherence to instructed precautions during ADL tasks. 2=Patient will verbalize/demonstrate understanding of assistive devices/modifications for ADL. 3=Patient will improve strength/tolerance for activity to enable patient to perform ADL's. OT Education/Plan Problem List/Assessment Assessment: Decreased Activ Tolerance, Decreased UE Strength, Impaired Funct Balance, Impaired I ADL's, Impaired Self-Care Skills Discharge Recommendations Plan/Recommendations: Continue POC Treatment Plan/Plan of Care Patient would benefit from OT for education, treatment and training to promote independence in ADL's, mobility, safety and/or upper extremity function for ADL's. Plan of Care: ADL Retraining, Functional Mobility, Group Exercise/Act as Ind, UE Funct Exercise/Act, UE Neuromus Re-Ed/Coord Treatment Duration: May 14, 2023 Frequency: At least 5 of 7 days/Wk (IRF) Estimated Hrs Per Day: 1.5 hours per day Agreement: Yes Rehab Potential: Good Time Start Time: 13:00 Stop Time: 13:45 DATE: Apr 30, 2023 Total Time Billed (hr/min): 45 Billed Treatment Time 1, NM 2 (35'), ADL (10') FREDY FELIPE OT Apr 30, 2023 13:58
--- NOTE | 2023-04-30 17:13 | Physical Therapy Daily Note ---
PT Daily Note-Current Subjective Pt presents sitting in ARU common area. Pt denies pain. Pt agreeable to tx. Pain Section J - Health Conditions 1. Rarely or not at all 2. Occasionally 3. Frequently 4. Almost constantly 8. Unable to answer Pain Effect on Sleep: 1 Pain Interference with Therapy: 1 Pain Interference w/Day-to-Day: 1 Mental Status Patient Orientation: Person, Place, Time, Situation Transfers SCALE: Activities may be completed with or without assistive devices. 8-Wfhtjwhtec-qfhxtfh completes the activity by him/herself with no assistance from a helper. 5-Set-up or Clean-up Assistance-helper sets up or cleans up; patient completes activity. [place] assists only prior to or following the activity. 4-Supervision or Touching Assistance-helper provides verbal cues and/or touching/steadying and/or contact guard assistance as patient completes activity. Assistance may be provided throughout the activity or intermittently. 3-Partial/Moderate Assistance-helper does LESS THAN HALF the effort. [place] lifts, holds or supports trunk or limbs, but provides less than half the effort. 2-Substantial/Maximal Assistance-helper does MORE THAN HALF the effort. [place] lifts or holds trunk or limbs and provides more than half the effort. 0-Rlyypsxkl-nwzcwx does ALL the effort. Patient does none of the effort to complete the activity. Or, the assistance of 2 or more helpers is required for the patient to complete the activity. If activity was not attempted, code reason: 7-Patient Refused. 9-Not Applicable-not attempted and the patient did not perform the activity before the current illness, exacerbation or injury. 10-Not Attempted due to Environmental Limitations-(lack of equipment, weather restraints, etc.). 88-Not Attempted due to Medical Conditions or Safety Concerns. Sit to Stand (QC): 6 Chair/Scz-ql-Gonki Xfer(QC): 6 Weight Bearing Weight Bearing/Tolerated Full Weight Bearing Gait Training Does the Patient Walk?: Yes Walk 10 feet (QC): 6 Walk 50 ft with 2 Turns(QC): 5 Walk 150 ft (QC): 5 Walking 10ft/uneven surface-QC: 4 Gait Assistive Device: FWW Pt amb 1000+' on even & uneven terrain with FWW, set-up assistance to [facility] for steadying on uneven terrain. Wheelchair Training Does the Pt Use a Wheelchair?: No Stair Training Stair Training: Handrails/: 1 handrail, uses walker 1 Step (curb) (QC): 4 4 Steps (QC): 4 12 Steps (QC): 4 Stairs: Pattern: Step to AMUSEMENT OR RECREATION CARD CHECKER educated pt on how to conduct stair mobility /c FWW. Pt demonstrated stair mobility with FWW, CGA x 3 stairs x 4 reps with (L) side rail. Neuromuscular AMUSEMENT OR RECREATION CARD CHECKER assisted pt with activating (R) Quad mm's during ambulation (to eleviate R knee hyper extension). AMUSEMENT OR RECREATION CARD CHECKER wrapped red ther band around R knee and onto walker to attempt eliminating R knee hyper ext. Pt appeared to walk with R knee WNL after red ther band applied. Assessment Current Status: Good Progress Pt able to amb over 1000+' during PM tx session. PT Mcc Goals Inseam Trimming Machine Operator Goals PT Inseam Trimming Machine Operator Goals Time Frame: May 12, 2023 Roll Left & Right (QC): 6 Sit to Lying (QC): 6 Lying-Sitting on Side/Bed(QC): 6 Sit to Stand (QC): 6 Chair/Czy-sv-Jomki Xfer(QC): 6 (/c FWW) Toilet Transfer (QC): 6 (/c FWW) Car Transfer (QC): 5 (/c FWW) Does the Patient Walk: Yes Walk 10 feet (QC): 6 (/c FWW) Walk 50ft with 2 Turns (QC): 6 (/c FWW) Walk 150 ft (QC): 6 (/c FWW) Walking 10ft on Uneven Surface: 6 (/c FWW) 1 Step (curb) (QC): 5 (/c FWW) 4 Steps (QC): 6 (/c (B) rails) 12 Steps (QC): 6 (/c (B) rails) Picking up an Object (QC): 6 (/c or /s infection control practitioner) Does the Pt use WC or Scooter?: No Wheel 50 feet with 2 turns (QC: 9 Wheel 150 feet: 9 PT Plan Problem List Problem List: Functional Strength Treatment/Plan Treatment Plan: Continue Plan of Care Treatment Plan: Bed Mobility, Education, Functional Activity Cristine, Functional Strength, Group Therapy, Gait, Safety, Therapeutic Exercise, Transfers Treatment Duration: May 12, 2023 Frequency: At least 5 of 7 days/Wk (IRF) Estimated Hrs Per Day: 1.5 hours per day Safety Risks/Education Patient Education: Safety Issues Teaching Recipient: Patient Teaching Methods: Discussion Response to Teaching: Return Demonstration Discharge Recommendations Plan Continue with tx per pt POC. Time Time In: 1345 Time Out: 1445 DATE: Apr 30, 2023 Total Billed Treatment Time: 60 Total Billed Treatment 1, GT2 (30m), FA (15m), NM (15m) ZO WILHELM AMUSEMENT OR RECREATION CARD CHECKER Apr 30, 2023 17:13
[2023-04-30 19:44] VITALS: BP 125/75
[2023-04-30] MEDS: CLOPIDOGREL 75 MG TABLET PO SCH (19:59)
[2023-05-01] MEDS: POTASSIUM CHLORIDE 10 MEQ TABLET PO SCH (06:28)
[2023-05-01 08:00] VITALS: BP 119/70
[2023-05-01] MEDS: ASPIRIN 81 MG CHEWABLE TABLET PO SCH (08:28)
[2023-05-01] MEDS: SENNA W/DOCUSATE TABLET PO SCH ×2 (08:28→20:02)
[2023-05-01] MEDS: DOCUSATE SODIUM 100 MG CAPSULE PO SCH ×2 (08:29→20:02)
--- NOTE | 2023-05-01 11:40 | PM&R Progress Note ---
Subjective HPI/CC On Admission Date Seen by Provider: May 01, 2023 Time Seen by Provider: 11:45 Subjective/Events-last exam 05/01/2023: Doing well Less numbness in her right hand BP stable Epistaxis so will start saline nasal spray 04/30/2023: Improved overall Still very paranoid about BP meds No falls No pain 04/29/2023: Patient doing well Noncompliant with lisinopril and Lipitor Tried to tell her it is important to take medication as ordered but she declines Reviewed meds and labs Review of Systems General: Fatigue, Malaise Neurological: Numbness, Incoordination Objective Exam Vital Signs Vital Signs Date Time Temp Pulse Resp B/P (MAP) Pulse Ox O2 Delivery O2 Flow Rate FiO2 05/01/23 08:00 36.7 84 18 119/70 (86) 98 Room Air Capillary Refill : General Appearance: No Apparent Distress, WD/WN, Chronically ill HEENT: PERRL/EOMI, Normal ENT Inspection, Pharynx Normal Neck: Full Range of Motion, Normal Inspection, Non Tender, Supple, Carotid Bruit Respiratory: Chest Non Tender, Lungs Clear, Normal Breath Sounds, No Accessory Muscle Use, No Respiratory Distress Cardiovascular: Regular Rate, Rhythm, No Edema, No Gallop, No JVD, No Murmur, Normal Peripheral Pulses Gastrointestinal: Normal Bowel Sounds, No Organomegaly, No Pulsatile Mass, Non Tender, Soft Back: Normal Inspection, No CVA Tenderness, No Vertebral Tenderness Extremity: Normal Capillary Refill, Normal Inspection, Normal Range of Motion, Non Tender, No Calf Tenderness, No Pedal Edema Neurologic/Psychiatric: Alert, Oriented x3, Normal Mood/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 FIM Transfers Therapy Code Descriptions/Definitions Functional [place] Measure: 0=Not Assessed/NA 4=Minimal Assistance 1=Total Assistance 5=Supervision or Setup 2=Maximal Assistance 6=Modified [place] 3=Moderate Assistance 7=Complete IndependenceSCALE: Activities may be completed with or without assistive devices. 2-Oiepwvpmwl-npabpqr completes the activity by him/herself with no assistance from a helper. 5-Set-up or Clean-up Assistance-helper sets up or cleans up; patient completes activity. [place] assists only prior to or following the activity. 4-Supervision or Touching Assistance-helper provides verbal cues and/or touching/steadying and/or contact guard assistance as patient completes activity. Assistance may be provided throughout the activity or intermittently. 3-Partial/Moderate Assistance-helper does LESS THAN HALF the effort. [place] l ifts, holds or supports trunk or limbs, but provides less than half the effort. 2-Substantial/Maximal Assistance-helper does MORE THAN HALF the effort. [place] lifts or holds trunk or limbs and provides more than half the effort. 3-Ravgldqnz-khfprl does ALL the effort. Patient does none of the effort to complete the activity. Or, the assistance of 2 or more helpers is required for t he patient to complete the activity. If activity was not attempted, code reason: 7-Patient Refused. 9-Not Applicable-not attempted and the patient did not perform the activity before the current illness, exacerbation or injury. 10-Not Attempted due to Environmental Limitations-(lack of equipment, weather restraints, etc.). 88-Not Attempted due to Medical Conditions or Safety Concerns. Roll Left to Right (QC): 6 Sit to Lying (QC): 6 Sit to Stand (QC): 6 Chair/Wma-fj-Dmnfs Xfer(QC): 6 Car Transfer (QC): 3 (min (A) ) Gait Training Does the Patient Walk?: Yes Walk 10 feet (QC): 6 Walk 50 ft with 2 Turns(QC): 5 Walk 150 ft (QC): 5 Walking 10ft/uneven surface-QC: 4 Gait Assistive Device: FWW Wheelchair Training Does the Pt Use a Wheelchair?: No Wheel 50 ft with 2 turns (QC): 9 Wheel 150 ft (QC): 9 Stair Training Stair Training: Handrails/: 1 handrail, uses walker 1 Step (curb) (QC): 4 4 Steps (QC): 4 12 Steps (QC): 4 Stairs: Pattern: Step to Balance Picking up an Object (QC): 4 ADL-Treatment Eating (QC): 6 (IND per pt report with breakfast) Oral Hygiene (QC): 6 Shower/Bathe Self (QC): 4 (SBA. Pt able to wash/dry all parts.) Upper Body Dressing (QC): 5 Lower Body Dressing (QC): 5 On/Off Footwear (QC): 5 Toileting Hygiene (QC): 4 (SBA) Toilet Transfer (QC): 4 (SBA) Assessment/Plan Assessment and Plan Assess & Plan/Chief Complaint Assessment: CVA bilateral internal capsules Right sided weakness and numbness HTN HLP Smoker Non-compliance with medications plan: PT OT Home meds Monitor closely 04/29/2023: Supportive care Monitor closely 04/30/2023: Tried to reassure Compliance with meds poor 05/01/2023: Saline nasal spray Continue monitoring BP (1) CVA (cerebral vascular accident) NICOLLE MEJÍA DO May 01, 2023 11:40
[2023-05-01] MEDS: SALINE NASAL SPRAY 45 ML BTL SCH ×3 (12:53→20:02)
[2023-05-01 19:39] VITALS: BP 129/70
[2023-05-01] MEDS: CLOPIDOGREL 75 MG TABLET PO SCH (20:02)
[2023-05-02] MEDS: POTASSIUM CHLORIDE 10 MEQ TABLET PO SCH (06:04)
[2023-05-02] MEDS: ASPIRIN 81 MG CHEWABLE TABLET PO SCH (07:18)
[2023-05-02] MEDS: SENNA W/DOCUSATE TABLET PO SCH ×2 (07:18→19:59)
[2023-05-02] MEDS: SALINE NASAL SPRAY 45 ML BTL SCH ×4 (07:19→20:00)
[2023-05-02] MEDS: DOCUSATE SODIUM 100 MG CAPSULE PO SCH ×2 (07:19→20:00)
[2023-05-02 08:06] VITALS: BP 145/86
--- NOTE | 2023-05-02 08:18 | PM&R Progress Note ---
Subjective HPI/CC On Admission Date Seen by Provider: May 02, 2023 Time Seen by Provider: 12:00 Subjective/Events-last exam 05/02/2023: No major issues Feels better Less numbness in her right leg 05/01/2023: Doing well Less numbness in her right hand BP stable Epistaxis so will start saline nasal spray 04/30/2023: Improved overall Still very paranoid about BP meds No falls No pain 04/29/2023: Patient doing well Noncompliant with lisinopril and Lipitor Tried to tell her it is important to take medication as ordered but she declines Reviewed meds and labs Review of Systems General: Fatigue, Malaise Neurological: Weakness, Numbness Objective Exam Vital Signs Vital Signs Date Time Temp Pulse Resp B/P (MAP) Pulse Ox O2 Delivery O2 Flow Rate FiO2 05/02/23 15:40 121/64 (83) 05/02/23 09:10 Room Air 05/02/23 08:06 35.6 73 18 97 Capillary Refill : General Appearance: No Apparent Distress, WD/WN, Chronically ill HEENT: PERRL/EOMI, Normal ENT Inspection, Pharynx Normal Neck: Full Range of Motion, Normal Inspection, Non Tender, Supple, Carotid Bruit Respiratory: Chest Non Tender, Lungs Clear, Normal Breath Sounds, No Accessory Muscle Use, No Respiratory Distress Cardiovascular: Regular Rate, Rhythm, No Edema, No Gallop, No JVD, No Murmur, Normal Peripheral Pulses Gastrointestinal: Normal Bowel Sounds, No Organomegaly, No Pulsatile Mass, Non Tender, Soft Back: Normal Inspection, No CVA Tenderness, No Vertebral Tenderness Extremity: Normal Capillary Refill, Normal Inspection, Normal Range of Motion, Non Tender, No Calf Tenderness, No Pedal Edema Neurologic/Psychiatric: Alert, Oriented x3, Normal Mood/Affect, 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 FIM Transfers Therapy Code Descriptions/Definitions Functional [place] Measure: 0=Not Assessed/NA 4=Minimal Assistance 1=Total Assistance 5=Supervision or Setup 2=Maximal Assistance 6=Modified [place] 3=Moderate Assistance 7=Complete IndependenceSCALE: Activities may be completed with or without assistive devices. 3-Matxujebkj-eihhnii completes the activity by him/herself with no assistance from a helper. 5-Set-up or Clean-up Assistance-helper sets up or cleans up; patient completes activity. [place] assists only prior to or following the activity. 4-Supervision or Touching Assistance-helper provides verbal cues and/or touching/steadying and/or contact guard assistance as patient completes activity. Assistance may be provided throughout the activity or intermittently. 3-Partial/Moderate Assistance-helper does LESS THAN HALF the effort. [place] lifts, holds or supports trunk or limbs, but provides less than half the effort. 2-Substantial/Maximal Assistance-helper does MORE THAN HALF the effort. [place] lifts or holds trunk or limbs and provides more than half the effort. 1-Sjxmqgxmu-vmczei does ALL the effort. Patient does none of the effort to complete the activity. Or, the assistance of 2 or more helpers is required for the patient to complete the activity. If activity was not attempted, code reason: 7-Patient Refused. 9-Not Applicable-not attempted and the patient did not perform the activity before the current illness, exacerbation or injury. 10-Not Attempted due to Environmental Limitations-(lack of equipment, weather restraints, etc.). 88-Not Attempted due to Medical Conditions or Safety Concerns. Roll Left to Right (QC): 6 Sit to Lying (QC): 6 Sit to Stand (QC): 6 Chair/Erq-sy-Jaxua Xfer(QC): 6 Car Transfer (QC): 3 (min (A) ) Gait Training Does the Patient Walk?: Yes Walk 10 feet (QC): 6 Walk 50 ft with 2 Turns(QC): 5 Walk 150 ft (QC): 5 Walking 10ft/uneven surface-QC: 4 Gait Assistive Device: FWW Wheelchair Training Does the Pt Use a Wheelchair?: No Wheel 50 ft with 2 turns (QC): 9 Wheel 150 ft (QC): 9 Stair Training Stair Training: Handrails/: 1 handrail, uses walker 1 Step (curb) (QC): 4 4 Steps (QC): 4 12 Steps (QC): 4 Stairs: Pattern: Step to Balance Picking up an Object (QC): 4 ADL-Treatment Eating (QC): 6 (IND per pt report with breakfast) Oral Hygiene (QC): 6 Shower/Bathe Self (QC): 4 (SBA. Pt able to wash/dry all parts.) Upper Body Dressing (QC): 5 Lower Body Dressing (QC): 5 On/Off Footwear (QC): 5 Toileting Hygiene (QC): 4 (SBA) Toilet Transfer (QC): 4 (SBA) Assessment/Plan Assessment and Plan Assess & Plan/Chief Complaint Assessment: CVA bilateral internal capsules Right sided weakness and numbness HTN HLP Smoker Non-compliance with medications plan: PT OT Home meds Monitor closely 04/29/2023: Supportive care Monitor closely 04/30/2023: Tried to reassure Compliance with meds poor 05/01/2023: Saline nasal spray Continue monitoring BP 05/02/2023: Monitor BP (1) CVA (cerebral vascular accident) NICOLLE MEJÍA DO May 02, 2023 08:18
[2023-05-02 15:40] VITALS: BP 121/64
[2023-05-02 19:46] VITALS: BP 124/63
[2023-05-02] MEDS: CLOPIDOGREL 75 MG TABLET PO SCH (19:59)
--- NOTE | 2023-05-03 05:07 | PM&R Progress Note ---
Subjective HPI/CC On Admission Date Seen by Provider: May 03, 2023 Time Seen by Provider: 08:30 Subjective/Events-last exam 05/03/2023: Doing well No pain reported Improved ambulation 05/02/2023: No major issues Feels better Less numbness in her right leg 05/01/2023: Doing well Less numbness in her right hand BP stable Epistaxis so will start saline nasal spray 04/30/2023: Improved overall Still very paranoid about BP meds No falls No pain 04/29/2023: Patient doing well Noncompliant with lisinopril and Lipitor Tried to tell her it is important to take medication as ordered but she declines Reviewed meds and labs Review of Systems General: Fatigue, Malaise Objective Exam Vital Signs Vital Signs Date Time Temp Pulse Resp B/P (MAP) Pulse Ox O2 Delivery O2 Flow Rate FiO2 05/03/23 20:13 36.0 70 18 134/76 (95) 98 Room Air Capillary Refill : General Appearance: No Apparent Distress, WD/WN, Chronically ill HEENT: PERRL/EOMI, Normal ENT Inspection, Pharynx Normal Neck: Full Range of Motion, Normal Inspection, Non Tender, Supple, Carotid Bruit Respiratory: Chest Non Tender, Lungs Clear, Normal Breath Sounds, No Accessory Muscle Use, No Respiratory Distress Cardiovascular: Regular Rate, Rhythm, No Edema, No Gallop, No JVD, No Murmur, Normal Peripheral Pulses Gastrointestinal: Normal Bowel Sounds, No Organomegaly, No Pulsatile Mass, Non Tender, Soft Back: Normal Inspection, No CVA Tenderness, No Vertebral Tenderness Extremity: Normal Capillary Refill, Normal Inspection, Normal Range of Motion, Non Tender, No Calf Tenderness, No Pedal Edema Neurologic/Psychiatric: Alert, Oriented x3, Normal 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 FIM Transfers Therapy Code Descriptions/Definitions Functional [place] Measure: 0=Not Assessed/NA 4=Minimal Assistance 1=Total Assistance 5=Supervision or Setup 2=Maximal Assistance 6=Modified [place] 3=Moderate Assistance 7=Complete IndependenceSCALE: Activities may be completed with or without assistive devices. 6-Hokmqqerlt-tzpwygg completes the activity by him/herself with no assistance from a helper. 5-Set-up or Clean-up Assistance-helper sets up or cleans up; patient completes activity. [place] assists only prior to or following the activity. 4-Supervision or Touching Assistance-helper provides verbal cues and/or touching/steadying and/or contact guard assistance as patient completes activity. Assistance may be provided throughout the activity or intermittently. 3-Partial/Moderate Assistance-helper does LESS THAN HALF the effort. [place] lifts, holds or supports trunk or limbs, but provides less than half the effort. 2-Substantial/Maximal Assistance-helper does MORE THAN HALF the effort. [place] lifts or holds trunk or limbs and provides more than half the effort. 8-Oidbzmxeb-hiqslt does ALL the effort. Patient does none of the effort to complete the activity. Or, the assistance of 2 or more helpers is required for the patient to complete the activity. If activity was not attempted, code reason: 7-Patient Refused. 9-Not Applicable-not attempted and the patient did not perform the activity before the current illness, exacerbation or injury. 10-Not Attempted due to Environmental Limitations-(lack of equipment, weather restraints, etc.). 88-Not Attempted due to Medical Conditions or Safety Concerns. Roll Left to Right (QC): 6 Sit to Lying (QC): 6 Sit to Stand (QC): 6 Chair/Fvp-zy-Ajeov Xfer(QC): 6 Car Transfer (QC): 3 (min (A) ) Gait Training Does the Patient Walk?: Yes Walk 10 feet (QC): 6 Walk 50 ft with 2 Turns(QC): 5 Walk 150 ft (QC): 5 Walking 10ft/uneven surface-QC: 4 Gait Assistive Device: FWW Wheelchair Training Does the Pt Use a Wheelchair?: No Wheel 50 ft with 2 turns (QC): 9 Wheel 150 ft (QC): 9 Stair Training Stair Training: Handrails/: 1 handrail, uses walker 1 Step (curb) (QC): 4 4 Steps (QC): 4 12 Steps (QC): 4 Stairs: Pattern: Step to Balance Picking up an Object (QC): 4 ADL-Treatment Eating (QC): 6 (IND per pt report with breakfast) Oral Hygiene (QC): 6 Shower/Bathe Self (QC): 4 (SBA. Pt able to wash/dry all parts.) Upper Body Dressing (QC): 5 Lower Body Dressing (QC): 5 On/Off Footwear (QC): 5 Toileting Hygiene (QC): 4 (SBA) Toilet Transfer (QC): 4 (SBA) Assessment/Plan Assessment and Plan Assess & Plan/Chief Complaint Assessment: CVA bilateral internal capsules Right sided weakness and numbness HTN HLP Smoker Non-compliance with medications Plan: PT OT Home meds Monitor closely 04/29/2023: Supportive care Monitor closely 04/30/2023: Tried to reassure Compliance with meds poor 05/01/2023: Saline nasal spray Continue monitoring BP 05/02/2023: Monitor BP 05/03/2023: Monitor BP Monitor right sided weakness (1) CVA (cerebral vascular accident) NICOLLE MEJÍA DO May 03, 2023 05:07
[2023-05-03 05:44] LABS: BASOPHILS # (AUTO) 0.1 10^3/uL (0.0-0.1); BASOPHILS % (AUTO) 1 % (0-10); EOSINOPHILS # (AUTO) 0.3 10^3/uL (0.0-0.3); EOSINOPHILS % (AUTO) 4 % (0-10); HEMATOCRIT 39 % (35-52); HEMOGLOBIN 13.3 g/dL (11.5-16.0); LYMPHOCYTES # (AUTO) 2.4 10^3/uL (1.0-4.0); LYMPHOCYTES % (AUTO) 39 % (12-44); MEAN CORPUSCULAR HEMOGLOBIN 32 pg (25-34); MEAN CORPUSCULAR HGB CONC 34 g/dL (32-36); MEAN CORPUSCULAR VOLUME 93 fL (80-99); MEAN PLATELET VOLUME 9.6 fL (9.0-12.2); MONOCYTES # (AUTO) 0.5 10^3/uL (0.0-1.0); MONOCYTES % (AUTO) 9 % (0-12); NEUTROPHILS # (AUTO) 2.8 10^3/uL (1.8-7.8); NEUTROPHILS % (AUTO) 47 % (42-75); PLATELET COUNT 220 10^3/uL (130-400)
[2023-05-03 05:58] LABS: ALBUMIN 3.8 GM/DL (3.2-4.5); BILIRUBIN,TOTAL 0.4 MG/DL (0.1-1.0); CALCIUM 9.2 MG/DL (8.5-10.1); CREATININE SERUM 0.82 MG/DL (0.60-1.30); TOTAL PROTEIN 6.5 GM/DL (6.4-8.2)
[2023-05-03] MEDS: POTASSIUM CHLORIDE 10 MEQ TABLET PO SCH (06:46)
[2023-05-03 08:00] VITALS: BP 131/74
--- NOTE | 2023-05-03 08:20 | Occupational Ther Daily Note ---
OT Current Status-Daily Note Subjective Pt agreeable to OT Tx Mental Status/Objective Patient Orientation: Normal For Age ADL-Treatment Therapy Code Descriptions/Definitions Functional [place] Measure: 0=Not Assessed/NA 4=Minimal Assistance 1=Total Assistance 5=Supervision or Setup 2=Maximal Assistance 6=Modified [place] 3=Moderate Assistance 7=Complete IndependenceSCALE: Activities may be completed with or without assistive devices. 8-Suexzzexib-uuenfjb completes the activity by him/herself with no assistance from a helper. 5-Set-up or Clean-up Assistance-helper sets up or cleans up; patient completes activity. [place] assists only prior to or following the activity. 4-Supervision or Touching Assistance-helper provides verbal cues and/or touching/steadying and/or contact guard assistance as patient completes activity. Assistance may be provided throughout the activity or intermittently. 3-Partial/Moderate Assistance-helper does LESS THAN HALF the effort. [place] lifts, holds or supports trunk or limbs, but provides less than half the effort. 2-Substantial/Maximal Assistance-helper does MORE THAN HALF the effort. [place] lifts or holds trunk or limbs and provides more than half the effort. 0-Bgwpjrunz-iafllf does ALL the effort. Patient does none of the effort to complete the activity. Or, the assistance of 2 or more helpers is required for the patient to complete the activity. If activity was not attempted, code reason: 7-Patient Refused. 9-Not Applicable-not attempted and the patient did not perform the activity before the current illness, exacerbation or injury. 10-Not Attempted due to Environmental Limitations-(lack of equipment, weather restraints, etc.). 88-Not Attempted due to Medical Conditions or Safety Concerns. Eating (QC): 6 Oral Hygiene (QC): 6 (standing at sink) Shower/Bathe Self (QC): 6 Upper Body Dressing (QC): 6 Lower Body Dressing (QC): 6 On/Off Footwear: 6 Toileting Hygiene (QC): 6 Toilet Transfer (QC): 6 Other Treatment Pt agreeable to OT Tx. Pt used FWW to gather clothes from shelf, and transport clothes into bathroom. Pt doffed clothes, completed shower (standing majority of task), then dried off and donned clothes. Pt completed grooming tasks and toileting. Pt used FWW to perform functional mobility to ARU common area. In order to increase fine motor coordination and neuromuscular reeducation RUE, pt completed UE reaching task, using RUE ~90% of time in order to take apart puzzle. Pt returned to her room using FWW, transferring to recliner. Post tx, pt in recliner, call light in reach and all needs met. Education OT Patient Education: Correct positioning, Energy conservation, Modified ADL techniques, Progress toward Goal/Update tx plan, Purpose of tx/functional activities, Rehab process Teaching Recipient: Patient Teaching Methods: Discussion Response to Teaching: Verbalize Understanding OT Work Order Sorting Clerk Goals Work Order Sorting Clerk Goals Time Frame: May 14, 2023 Acute change in mental status: 0 Inattention: 0 Disorganized thinkin Altered level of consciousness: 0 Eating (QC): 6 Oral Hygiene (QC): 6 Toileting Hygiene (QC): 6 Shower/Bathe Self (QC): 6 Upper Body Dressing (QC): 6 Lower Body Dressing (QC): 6 On/Off Footwear (QC): 6 Additional Goals: 1-Demonstrate ADL Tasks, 2-Verbalize Understanding, 3-ImproveStrength/Cristine 1=Demonstrate adherence to instructed precautions during ADL tasks. 2=Patient will verbalize/demonstrate understanding of assistive devices/modifications for ADL. 3=Patient will improve strength/tolerance for activity to enable patient to perform ADL's. OT Education/Plan Problem List/Assessment Assessment: Decreased Activ Tolerance, Decreased UE Strength, Impaired I ADL's Discharge Recommendations Plan/Recommendations: Continue POC Treatment Plan/Plan of Care Patient would benefit from OT for education, treatment and training to promote independence in ADL's, mobility, safety and/or upper extremity function for ADL's. Plan of Care: ADL Retraining, Functional Mobility, Group Exercise/Act as Ind, UE Funct Exercise/Act, UE Neuromus Re-Ed/Coord Treatment Duration: May 14, 2023 Frequency: At least 5 of 7 days/Wk (IRF) Estimated Hrs Per Day: 1.5 hours per day Agreement: Yes Rehab Potential: Good Time Start Time: 07:30 Stop Time: 08:30 DATE: May 03, 2023 Total Time Billed (hr/min): 60 Billed Treatment Time 1, ADL 3 (45'), NM (15') FREDY FELIPE OT May 03, 2023 08:20
[2023-05-03] MEDS: ASPIRIN 81 MG CHEWABLE TABLET PO SCH (08:52)
[2023-05-03] MEDS: SALINE NASAL SPRAY 45 ML BTL SCH ×4 (08:52→21:07)
[2023-05-03] MEDS: DOCUSATE SODIUM 100 MG CAPSULE PO SCH ×2 (08:53→21:05)
[2023-05-03] MEDS: SENNA W/DOCUSATE TABLET PO SCH ×2 (08:53→21:05)
--- NOTE | 2023-05-03 12:25 | Physical Therapy Daily Note ---
PT Daily Note-Current Subjective Pt presents sitting in chair in Count includes the [facility]. Pt denies pain. Pt agreeable to PT tx. Pain Section J - Health Conditions 1. Rarely or not at all 2. Occasionally 3. Frequently 4. Almost constantly 8. Unable to answer Pain Effect on Sleep: 1 Pain Interference with Therapy: 1 Pain Interference w/Day-to-Day: 1 Mental Status Patient Orientation: Person, Place, Time, Situation Transfers SCALE: Activities may be completed with or without assistive devices. 9-Dpvhtrmicu-invyohm completes the activity by him/herself with no assistance from a helper. 5-Set-up or Clean-up Assistance-helper sets up or cleans up; patient completes activity. [place] assists only prior to or following the activity. 4-Supervision or Touching Assistance-helper provides verbal cues and/or touching/steadying and/or contact guard assistance as patient completes activity. Assistance may be provided throughout the activity or intermittently. 3-Partial/Moderate Assistance-helper does LESS THAN HALF the effort. [place] lifts, holds or supports trunk or limbs, but provides less than half the effort. 2-Substantial/Maximal Assistance-helper does MORE THAN HALF the effort. [place] lifts or holds trunk or limbs and provides more than half the effort. 5-Uiqallnjp-rkgrye does ALL the effort. Patient does none of the effort to c omplete the activity. Or, the assistance of 2 or more helpers is required for the patient to complete the activity. If activity was not attempted, code reason: 7-Patient Refused. 9-Not Applicable-not attempted and the patient did not perform the activity before the current illness, exacerbation or injury. 10-Not Attempted due to Environmental Limitations-(lack of equipment, weather restraints, etc.). 88-Not Attempted due to Medical Conditions or Safety Concerns. Sit to Stand (QC): 6 Chair/Xcs-cg-Cejtu Xfer(QC): 6 Weight Bearing Weight Bearing/Tolerated Full Weight Bearing Gait Training Does the Patient Walk?: Yes Walk 10 feet (QC): 6 Walk 50 ft with 2 Turns(QC): 5 Walk 150 ft (QC): 5 Gait Assistive Device: FWW Pt amb around [facility] ~200' /c FWW, SBA for safety. Wheelchair Training Does the Pt Use a Wheelchair?: No Stair Training 1 Step (curb) (QC): 4 Balance Special Test Comments Pt performed dynamic standing balance/weight shifting activity moving foot side<>side in front of her, taking turnings on each LE x 5 min. Pt conducted TUG test with following results: 1) 15secs, 2) 13secs, 3) 13secs. Exercises THER EX: Seated B LE x 20: HS curls, with red ther band, controlling concentric and eccentric movements. Standing B LE step-ups /c 1 handrail x 10reps. Standing in (II) /s hands walking forward x 4reps, and side-stepping x 4reps. Treatments Pt amb around ARU ~200' /c FWW, SBA. Pt performed seated ther ex, standing /c 1 handrail step-ups and standing ther ex in (II). Pt demonstrated fair dynamic standing balance /s hands in (II). Post tx with pt in recliner in room, call light within reach and all needs met. Assessment Current Status: Good Progress Pt static standing balance is good, while dynamic standing balance is fair and still requires FWW for safety. PT Tugboat Engineer Goals [facility] Goals PT Tugboat Engineer Goals Time Frame: May 12, 2023 Roll Left & Right (QC): 6 Sit to Lying (QC): 6 Lying-Sitting on Side/Bed(QC): 6 Sit to Stand (QC): 6 Chair/Wym-fi-Hxyem Xfer(QC): 6 (/c FWW) Toilet Transfer (QC): 6 (/c FWW) Car Transfer (QC): 5 (/c FWW) Does the Patient Walk: Yes Walk 10 feet (QC): 6 (/c FWW) Walk 50ft with 2 Turns (QC): 6 (/c FWW) Walk 150 ft (QC): 6 (/c FWW) Walking 10ft on Uneven Surface: 6 (/c FWW) 1 Step (curb) (QC): 5 (/c FWW) 4 Steps (QC): 6 (/c (B) rails) 12 Steps (QC): 6 (/c (B) rails) Picking up an Object (QC): 6 (/c or /s returner) Does the Pt use WC or Scooter?: No Wheel 50 feet with 2 turns (QC: 9 Wheel 150 feet: 9 PT Plan Problem List Problem List: Activity Tolerance, Functional Strength Treatment/Plan Treatment Plan: Continue Plan of Care Treatment Plan: Bed Mobility, Education, Functional Activity Cristine, Functional Strength, Group Therapy, Gait, Safety, Therapeutic Exercise, Transfers Treatment Duration: May 12, 2023 Frequency: At least 5 of 7 days/Wk (IRF) Estimated Hrs Per Day: 1.5 hours per day Safety Risks/Education Patient Education: Safety Issues Teaching Recipient: Patient Teaching Methods: Discussion Response to Teaching: Verbalize Understanding, Return Demonstration Discharge Recommendations Plan Continue with tx per pt POC. Time Time In: 1030 Time Out: 1115 DATE: May 03, 2023 Total Billed Treatment Time: 45 Total Billed Treatment 1, EX (15m), NM2 (30m) ZO WILHELM PTA May 03, 2023 12:25
--- NOTE | 2023-05-03 15:14 | Physical Therapy Daily Note ---
PT Daily Note-Current Subjective Pt presents sitting in chair in [facility]. Pt denies pain and is agreeable to tx. Pain Section J - Health Conditions 1. Rarely or not at all 2. Occasionally 3. Frequently 4. Almost constantly 8. Unable to answer Pain Effect on Sleep: 1 Pain Interference with Therapy: 1 Pain Interference w/Day-to-Day: 1 Mental Status Patient Orientation: Person, Place, Time, Situation Transfers SCALE: Activities may be completed with or without assistive devices. 5-Wzmoyzvzhe-nzsdvsu completes the activity by him/herself with no assistance from a helper. 5-Set-up or Clean-up Assistance-helper sets up or cleans up; patient completes activity. [place] assists only prior to or following the activity. 4-Supervision or Touching Assistance-helper provides verbal cues and/or touching/steadying and/or contact guard assistance as patient completes activity. Assistance may be provided throughout the activity or intermittently. 3-Partial/Moderate Assistance-helper does LESS THAN HALF the effort. [place] lifts, holds or supports trunk or limbs, but provides less than half the effort. 2-Substantial/Maximal Assistance-helper does MORE THAN HALF the effort. [place] lifts or holds trunk or limbs and provides more than half the effort. 1-Cnxflpisk-cwfdwp does ALL the effort. Patient does none of the effort to c omplete the activity. Or, the assistance of 2 or more helpers is required for the patient to complete the activity. If activity was not attempted, code reason: 7-Patient Refused. 9-Not Applicable-not attempted and the patient did not perform the activity before the current illness, exacerbation or injury. 10-Not Attempted due to Environmental Limitations-(lack of equipment, weather restraints, etc.). 88-Not Attempted due to Medical Conditions or Safety Concerns. Sit to Stand (QC): 6 Chair/Yfg-ty-Xjege Xfer(QC): 6 Weight Bearing Weight Bearing/Tolerated Full Weight Bearing Gait Training Does the Patient Walk?: Yes PT Mcc Goals Entry Level Account Executive Goals PT Entry Level Account Executive Goals Time Frame: May 12, 2023 Roll Left & Right (QC): 6 Sit to Lying (QC): 6 Lying-Sitting on Side/Bed(QC): 6 Sit to Stand (QC): 6 Chair/Xij-zb-Nlukb Xfer(QC): 6 (/c FWW) Toilet Transfer (QC): 6 (/c FWW) Car Transfer (QC): 5 (/c FWW) Does the Patient Walk: Yes Walk 10 feet (QC): 6 (/c FWW) Walk 50ft with 2 Turns (QC): 6 (/c FWW) Walk 150 ft (QC): 6 (/c FWW) Walking 10ft on Uneven Surface: 6 (/c FWW) 1 Step (curb) (QC): 5 (/c FWW) 4 Steps (QC): 6 (/c (B) rails) 12 Steps (QC): 6 (/c (B) rails) Picking up an Object (QC): 6 (/c or /s linoleum layer) Does the Pt use WC or Scooter?: No Wheel 50 feet with 2 turns (QC: 9 Wheel 150 feet: 9 PT Plan Treatment/Plan Treatment Plan: Bed Mobility, Education, Functional Activity Cristine, Functional Strength, Group Therapy, Gait, Safety, Therapeutic Exercise, Transfers Treatment Duration: May 12, 2023 Frequency: At least 5 of 7 days/Wk (IRF) Estimated Hrs Per Day: 1.5 hours per day ZO WILHELM UNIVERSITY LIBRARIAN May 03, 2023 15:14
--- NOTE | 2023-05-03 15:23 | Physical Therapy Progress Note ---
Therapy Progress Note The pt has a mobility limitation that significantly impairs her ability to ambulate safely in home and conduct upper extremity mobility-related activities of daily living (MRADL's) in the home. The pt is able to safely use a walker and the functional mobility deficit can be sufficiently resolved with use of a walker. ZO WILHELM PICTURE FRAMER May 03, 2023 15:23
--- NOTE | 2023-05-03 15:35 | Therapy Group Daily Note ---
Therapy Daily Group Note Patient Education Topic Home Safety, Exercises Exercises LE Seated Exercise, UE Exercise Session Ratio (pt:therapist): 4:1 Goal of Session: Education on ARU Expectations, Home Safety Strategies, UE/LE Strengthing Goal Met for this Session: Yes Pt Benefit of Group: Contributions to Others, F/U Use of Strategies @Home, Increased Functional Safety, Increased Functional Strength, Improved Cognition, Recognition of Peers, Socialization Other/Notes Group completed with Inge Armando. Took over pt care from OT. OT/PT group consisted of introductions (name,place living, favorite Thanksgiving food), socialization, B UE/LE seated exercises and educational topic of home safety with activity. Pt introduced self appropriately and actively listened to peers. Pt able to complete B UE/LE seated exercises independently. Pt demonstrated understanding of educational topic by voicing personal experiences and using information gathered during discussion. Post tx with pt in recliner, call light within reach and all needs met. Start Time: 13:00 Stop Time: 14:15 Total Billed Treatment Time: 75 Total Billed Treatment 1, GRP ZO WILHELM AGRICULTURAL ENGINEER May 03, 2023 15:35
[2023-05-03 20:13] VITALS: BP 134/76
[2023-05-03] MEDS: CLOPIDOGREL 75 MG TABLET PO SCH (21:07)
[2023-05-04] MEDS: POTASSIUM CHLORIDE 10 MEQ TABLET PO SCH (06:31)
--- NOTE | 2023-05-04 07:04 | PM&R Progress Note ---
Subjective HPI/CC On Admission Date Seen by Provider: May 04, 2023 Time Seen by Provider: 12:00 Subjective/Events-last exam 05/04/2023: Much improved Numbness improved No falls 05/03/2023: Doing well No pain reported Improved ambulation 05/02/2023: No major issues Feels better Less numbness in her right leg 05/01/2023: Doing well Less numbness in her right hand BP stable Epistaxis so will start saline nasal spray 04/30/2023: Improved overall Still very paranoid about BP meds No falls No pain 04/29/2023: Patient doing well Noncompliant with lisinopril and Lipitor Tried to tell her it is important to take medication as ordered but she declines Reviewed meds and labs Review of Systems General: Fatigue, Malaise Objective Exam Vital Signs Vital Signs Date Time Temp Pulse Resp B/P (MAP) Pulse Ox O2 Delivery O2 Flow Rate FiO2 05/04/23 09:56 73 18 131/86 (101) 97 Room Air 05/04/23 08:00 36.7 Capillary Refill : General Appearance: No Apparent Distress, WD/WN, Chronically ill HEENT: PERRL/EOMI, Normal ENT Inspection, Pharynx Normal Neck: Full Range of Motion, Normal Inspection, Non Tender, Supple, Carotid Bruit Respiratory: Chest Non Tender, Lungs Clear, Normal Breath Sounds, No Accessory Muscle Use, No Respiratory Distress Cardiovascular: Regular Rate, Rhythm, No Edema, No Gallop, No JVD, No Murmur, Normal Peripheral Pulses Gastrointestinal: Normal Bowel Sounds, No Organomegaly, No Pulsatile Mass, Non Tender, Soft Back: Normal Inspection, No CVA Tenderness, No Vertebral Tenderness Extremity: Normal Capillary Refill, Normal Inspection, Normal Range of Motion, Non Tender, No Calf Tenderness, No Pedal Edema Neurologic/Psychiatric: Alert, Oriented x3, Normal Mood/Affect, health center assistant II-XII Norm as Tested, Motor Weakness (right sided subtle weakness) Skin: Normal Color, Warm/Dry Lymphatic: No Adenopathy Results/Procedures Lab Patient resulted labs reviewed. FIM Transfers Therapy Code Descriptions/Definitions Functional [place] Measure: 0=Not Assessed/NA 4=Minimal Assistance 1=Total Assistance 5=Supervision or Setup 2=Maximal Assistance 6=Modified [place] 3=Moderate Assistance 7=Complete IndependenceSCALE: Activities may be completed with or without assistive devices. 4-Fiqedzlktr-fnfmqmx completes the activity by him/herself with no assistance from a helper. 5-Set-up or Clean-up Assistance-helper sets up or cleans up; patient completes activity. [place] assists only prior to or following the activity. 4-Supervision or Touching Assistance-helper provides verbal cues and/or touching/steadying and/or contact guard assistance as patient completes activit y. Assistance may be provided throughout the activity or intermittently. 3-Partial/Moderate Assistance-helper does LESS THAN HALF the effort. [place] lifts, holds or supports trunk or limbs, but provides less than half the effort. 2-Substantial/Maximal Assistance-helper does MORE THAN HALF the effort. [place] lifts or holds trunk or limbs and provides more than half the effort. 6-Peynbwiyx-poorqo does ALL the effort. Patient does none of the effort to complete the activity. Or, the assistance of 2 or more helpers is required for the patient to complete the activity. If activity was not attempted, code reason: 7-Patient Refused. 9-Not Applicable-not attempted and the patient did not perform the activity before the current illness, exacerbation or injury. 10-Not Attempted due to Environmental Limitations-(lack of equipment, weather restraints, etc.). 88-Not Attempted due to Medical Conditions or Safety Concerns. Roll Left to Right (QC): 6 Sit to Lying (QC): 6 Sit to Stand (QC): 6 Chair/Nfr-lq-Txvfs Xfer(QC): 6 Car Transfer (QC): 3 (min (A) ) Gait Training Does the Patient Walk?: Yes Walk 10 feet (QC): 6 Walk 50 ft with 2 Turns(QC): 5 Walk 150 ft (QC): 5 Walking 10ft/uneven surface-QC: 4 Gait Assistive Device: FWW Wheelchair Training Does the Pt Use a Wheelchair?: No Wheel 50 ft with 2 turns (QC): 9 Wheel 150 ft (QC): 9 Stair Training Stair Training: Handrails/: 1 handrail, uses walker 1 Step (curb) (QC): 4 4 Steps (QC): 4 12 Steps (QC): 4 Stairs: Pattern: Step to Balance Picking up an Object (QC): 4 ADL-Treatment Eating (QC): 6 Oral Hygiene (QC): 6 (standing at sink) Shower/Bathe Self (QC): 6 Upper Body Dressing (QC): 6 Lower Body Dressing (QC): 6 On/Off Footwear (QC): 6 Toileting Hygiene (QC): 6 Toilet Transfer (QC): 6 Assessment/Plan Assessment and Plan Assess & Plan/Chief Complaint Assessment: CVA bilateral internal capsules Right sided weakness and numbness HTN HLP Smoker Non-compliance with medications Plan: PT OT Home meds Monitor closely 04/29/2023: Supportive care Monitor closely 04/30/2023: Tried to reassure Compliance with meds poor 05/01/2023: Saline nasal spray Continue monitoring BP 05/02/2023: Monitor BP 05/03/2023: Monitor BP Monitor right sided weakness 05/04/2023: Monitor closely BP labile (1) CVA (cerebral vascular accident) NICOLLE MEJÍA DO May 04, 2023 07:03
--- NOTE | 2023-05-04 07:48 | Occupational Ther Daily Note ---
OT Current Status-Daily Note Subjective Pt agreeable to OT tx, spouse present for family training Mental Status/Objective Patient Orientation: Normal For Age ADL-Treatment Therapy Code Descriptions/Definitions Functional [place] Measure: 0=Not Assessed/NA 4=Minimal Assistance 1=Total Assistance 5=Supervision or Setup 2=Maximal Assistance 6=Modified [place] 3=Moderate Assistance 7=Complete IndependenceSCALE: Activities may be completed with or without assistive devices. 9-Ycoigtihqh-vupwuyp completes the activity by him/herself with no assistance from a helper. 5-Set-up or Clean-up Assistance-helper sets up or cleans up; patient completes activity. [place] assists only prior to or following the activity. 4-Supervision or Touching Assistance-helper provides verbal cues and/or touching/steadying and/or contact guard assistance as patient completes activity. Assistance may be provided throughout the activity or intermittently. 3-Partial/Moderate Assistance-helper does LESS THAN HALF the effort. [place] lifts, holds or supports trunk or limbs, but provides less than half the effort. 2-Substantial/Maximal Assistance-helper does MORE THAN HALF the effort. [place] lifts or holds trunk or limbs and provides more than half the effort. 8-Fmskbanav-wuiwwq does ALL the effort. Patient does none of the effort to complete the activity. Or, the assistance of 2 or more helpers is required for the patient to complete the activity. If activity was not attempted, code reason: 7-Patient Refused. 9-Not Applicable-not attempted and the patient did not perform the activity before the current illness, exacerbation or injury. 10-Not Attempted due to Environmental Limitations-(lack of equipment, weather restraints, etc.). 88-Not Attempted due to Medical Conditions or Safety Concerns. Eating (QC): 6 Upper Body Dressing (QC): 6 Lower Body Dressing (QC): 6 On/Off Footwear: 6 Toileting Hygiene (QC): 6 Toilet Transfer (QC): 6 Other Treatment Pt agreeable to OT tx. Pt ate breakfast, able to open containers and cut food independently. She gathered clothing from closet using FWW, and donned clothes independently. OT/PT cotreat due to skill of 2 clinicians required which a vocational rehabilitation consultant could not perform in order to coordinate UE/LEs, decrease fall risk, focus on higher level balance task, and for family education. OT focused on UE placement, ADLs, and cues for sequencing and safety, PT focused on LE placement, gross overall movement, transfers/mobility. Pt used FWW to perform community mobility around hospital, navigating elevators and hallways to locate main entrance. Pt used FWW to navigate ramps, stairs, and car transfer in/out of her husbands vegetable picker truck. Pt returned to her room using FWW, transferring to recliner. Post tx, pt in recliner, call light in reach and all needs met. Pt IND with mobility and transfers on this date using FWW. Education OT Patient Education: Correct positioning, Energy conservation, Modified ADL techniques, Purpose of tx/functional activities, Rehab process Teaching Recipient: Patient Teaching Methods: Discussion Response to Teaching: Verbalize Understanding BIMS CAM BIMS Expression of Ideas and Wants: Without Difficulty Understanding Verbal Content: Understands Brief Interview/Mental Status: Yes IRF TERRY BIMS: IRF TERRY BIMS Response (Comments) Value Repitition of Three Words Three 3 Recalls Socks Yes, No Cue Required 2 Recalls Blue Yes, No Cue Required 2 Recalls Bed Yes, No Cue Required 2 Year Correct 3 Month Accurate Within 5 Days 2 Day Correct 1 Total 15 Should Staff Asses. Mental St.: No CAM Mental Status Change/Baseline: 0 Inattention: 0 Disorganized thinkin Altered level of consciousness: 0 OT Technology Resource Teacher Goals Technology Resource Teacher Goals Time Frame: May 14, 2023 Acute change in mental status: 0 Inattention: 0 Disorganized thinkin Altered level of consciousness: 0 Eating (QC): 6 (met) Oral Hygiene (QC): 6 (met) Toileting Hygiene (QC): 6 (met) Shower/Bathe Self (QC): 6 (met) Upper Body Dressing (QC): 6 (met) Lower Body Dressing (QC): 6 (met) On/Off Footwear (QC): 6 (met) Additional Goals: 1-Demonstrate ADL Tasks, 2-Verbalize Understanding, 3- ImproveStrength/Cristine 1=Demonstrate adherence to instructed precautions during ADL tasks. 2=Patient will verbalize/demonstrate understanding of assistive devices/modifications for ADL. 3=Patient will improve strength/tolerance for activity to enable patient to perform ADL's. OT Education/Plan Problem List/Assessment Assessment: Decreased Activ Tolerance, Impaired I ADL's Discharge Recommendations Plan/Recommendations: Continue POC Treatment Plan/Plan of Care Patient would benefit from OT for education, treatment and training to promote independence in ADL's, mobility, safety and/or upper extremity function for ADL's. Plan of Care: ADL Retraining, Functional Mobility, Group Exercise/Act as Ind, UE Funct Exercise/Act, UE Neuromus Re-Ed/Coord Treatment Duration: May 14, 2023 Frequency: At least 5 of 7 days/Wk (IRF) Estimated Hrs Per Day: 1.5 hours per day Agreement: Yes Rehab Potential: Good Time Start Time: 07:15 Stop Time: 08:45 DATE: May 04, 2023 Total Time Billed (hr/min): 90 Billed Treatment Time 45' cotreat 1, ADL 4 (60'), FA 2 (30') FREDY FELIPE OT May 04, 2023 07:48
[2023-05-04 08:00] VITALS: BP 157/73
[2023-05-04] MEDS: ASPIRIN 81 MG CHEWABLE TABLET PO SCH (09:53)
[2023-05-04] MEDS: cloNIDine 0.1 MG TABLET PO SCH ×4 (09:53→20:51)
[2023-05-04] MEDS: amLODIPine 10 MG TABLET PO SCH (09:53)
[2023-05-04 09:56] VITALS: BP 131/86
[2023-05-04] MEDS: SALINE NASAL SPRAY 45 ML BTL SCH ×4 (09:59→20:50)
[2023-05-04] MEDS: SENNA W/DOCUSATE TABLET PO SCH ×2 (10:07→20:52)
[2023-05-04] MEDS: DOCUSATE SODIUM 100 MG CAPSULE PO SCH ×2 (10:07→20:51)
--- NOTE | 2023-05-04 11:22 | Physical Therapy Daily Note ---
PT Daily Note-Current Subjective Pt presents in bathroom /c OT. Pt's present in room. Pt denies pain and is agreeable to PT/OT cotreat. Pain Section J - Health Conditions 1. Rarely or not at all 2. Occasionally 3. Frequently 4. Almost constantly 8. Unable to answer Pain Effect on Sleep: 1 Pain Interference with Therapy: 1 Pain Interference w/Day-to-Day: 1 Mental Status Patient Orientation: Person, Place, Time, Situation Transfers SCALE: Activities may be completed with or without assistive devices. 1-Flwffznjhd-dgcajie completes the activity by him/herself with no assistance from a helper. 5-Set-up or Clean-up Assistance-helper sets up or cleans up; patient completes activity. [place] assists only prior to or following the activity. 4-Supervision or Touching Assistance-helper provides verbal cues and/or touchin g/steadying and/or contact guard assistance as patient completes activity. Assistance may be provided throughout the activity or intermittently. 3-Partial/Moderate Assistance-helper does LESS THAN HALF the effort. [place] lifts, holds or supports trunk or limbs, but provides less than half the effort. 2-Substantial/Maximal Assistance-helper does MORE THAN HALF the effort. [place] lifts or holds trunk or limbs and provides more than half the effort. 4-Jpdcujwhv-zysxwo does ALL the effort. Patient does none of the effort to complete the activity. Or, the assistance of 2 or more helpers is required for the patient to complete the activity. If activity was not attempted, code reason: 7-Patient Refused. 9-Not Applicable-not attempted and the patient did not perform the activity before the current illness, exacerbation or injury. 10-Not Attempted due to Environmental Limitations-(lack of equipment, weather restraints, etc.). 88-Not Attempted due to Medical Conditions or Safety Concerns. Roll Left & Right (QC): 6 Sit to Lying (QC): 6 Lying to Sitting/Side of Bed(Q: 6 Sit to Stand (QC): 6 Chair/Bol-jf-Tjgjb Xfer(QC): 6 Toilet Transfer (QC): 6 Car Transfer (QC): 5 Weight Bearing Weight Bearing/Tolerated Full Weight Bearing Gait Training Does the Patient Walk?: Yes Walk 10 feet (QC): 6 Walk 50 ft with 2 Turns(QC): 6 Walk 150 ft (QC): 6 Walking 10ft/uneven surface-QC: 6 Gait Assistive Device: FWW Wheelchair Training Does the Pt Use a Wheelchair?: No Stair Training Stair Training: Handrails/: 1 handrail, uses walker 1 Step (curb) (QC): 6 4 Steps (QC): 6 12 Steps (QC): 6 Stairs: Pattern: Step to /c & /s FWW, Independently Balance Picking up an Object (QC): 6 Special Test Comments (L) UE on FWW for stability, Independently Treatments OT/PT cotreat due to skill of 2 clinicians required which a rehabilitation services coordinator could not perform in order to coordinate UE/LEs, decrease fall risk, focus on higher level balance task, and for family education. OT focused on UE placement, ADLs, and cues for sequencing and safety, PT focused on LE placement, gross overall movement, transfers/mobility. Pt used FWW to perform community mobility around hospital, navigating elevators and hallways to locate main entrance. Pt used FWW to navigate ramps, stairs, and car transfer in/out of her husbands pickle water pump operator truck. Pt returned to her room using FWW, transferring to recliner. Post tx, pt in recliner, call light in reach and all needs met. Assessment Current Status: Excellent Progress Pt was able to complete entire QC Independently, except for setup assistance with car transfer. Pt's vehicle is a tall truck with step-side and pt completed with setup assistance. PT Absorption Plant Operator Goals Skilled Nursing Goals PT Absorption Plant Operator Goals Time Frame: May 12, 2023 Roll Left & Right (QC): 6 Sit to Lying (QC): 6 Lying-Sitting on Side/Bed(QC): 6 Sit to Stand (QC): 6 Chair/Ftk-ow-Pkhfv Xfer(QC): 6 (/c FWW) Toilet Transfer (QC): 6 (/c FWW) Car Transfer (QC): 5 (/c FWW) Does the Patient Walk: Yes Walk 10 feet (QC): 6 (/c FWW) Walk 50ft with 2 Turns (QC): 6 (/c FWW) Walk 150 ft (QC): 6 (/c FWW) Walking 10ft on Uneven Surface: 6 (/c FWW) 1 Step (curb) (QC): 5 (/c FWW) 4 Steps (QC): 6 (/c (B) rails) 12 Steps (QC): 6 (/c (B) rails) Picking up an Object (QC): 6 (/c or /s closing specialist) Does the Pt use WC or Scooter?: No Wheel 50 feet with 2 turns (QC: 9 Wheel 150 feet: 9 PT Plan Treatment/Plan Treatment Plan: Continue Plan of Care, Discontinue PT, goals met Treatment Plan: Bed Mobility, Education, Functional Activity Cristine, Functional Strength, Group Therapy, Gait, Safety, Therapeutic Exercise, Transfers Treatment Duration: May 12, 2023 Frequency: At least 5 of 7 days/Wk (IRF) Estimated Hrs Per Day: 1.5 hours per day Safety Risks/Education Patient Education: Safety Issues Teaching Recipient: Patient, Family Teaching Methods: Discussion Response to Teaching: Verbalize Understanding, Return Demonstration Discharge Recommendations Plan Per pt POC, D/C on 05/05/2023. Time Time In: 0800 Time Out: 0845 DATE: May 04, 2023 Total Billed Treatment Time: 45 Total Billed Treatment 1, GT2 (30m), FA (15m) ZO WILHELM PTA May 04, 2023 11:22
--- NOTE | 2023-05-04 16:08 | Therapy Group Daily Note ---
Therapy Daily Group Note Patient Education Topic Exercises, Other List Below Exercises LE Seated Exercise, LE Standing Exercise, Balance, Sit to/from Stand, Gross Motor, UE Exercise Session Ratio (pt:therapist): 2:1 Goal of Session: Energy Conservation Tech., UE/LE Strengthing Goal Met for this Session: Yes Pt Benefit of Group: Contributions to Others, Increased Functional Safety, Increased Functional Strength, Improved Cognition, Recognition of Peers Other/Notes Group completed with Aarti Wilhelm. PT group consisted of introductions (name), socialization, B UE/LE exercise, and multiple sitting/standing dynamic balance activities. Pt introduced self appropriately and actively listened to peers. Pt able to complete B UE/LE exercises, standing/sitting dynamic balance activities, /c FWW, independently. Pt demonstrated good endurance and fair stabilization. Pt amb back to room to get drink and back to [facility] area, nursing made aware and all needs met. Start Time: 14:15 Stop Time: 15:00 Total Billed Treatment Time: 45 Total Billed Treatment 1, GRP (45m) AARTI WILHELM CHICKEN AND FISH BUTCHER May 04, 2023 16:07
[2023-05-04] MEDS: CLOPIDOGREL 75 MG TABLET PO SCH (20:50)
[2023-05-04 21:00] VITALS: BP 125/80
[2023-05-05] MEDS ORDERED: AMLO-251 PO (04:43)
[2023-05-05] MEDS ORDERED: LISI20TA26 PO (04:43)
[2023-05-05] MEDS ORDERED: ASPI-999 PO (04:43)
[2023-05-05] MEDS ORDERED: POTA-160 PO (04:43)
[2023-05-05] MEDS ORDERED: ATOR20TA66 PO (04:43)
[2023-05-05] MEDS ORDERED: CLN.1T PO (04:43)
[2023-05-05] MEDS ORDERED: CLOP75TA28 PO (04:43)
--- NOTE | 2023-05-05 04:45 | Discharge Summary ---
Diagnosis/Chief Complaint Date of Admission Apr 28, 2023 at 11:15 Date of Discharge Discharge Date: May 05, 2023 Discharge Diagnosis Assessment: CVA bilateral internal capsules Right sided weakness and numbness HTN HLP Smoker Non-compliance with medications Plan: PT OT Home meds Monitor closely 04/29/2023: Supportive care Monitor closely 04/30/2023: Tried to reassure Compliance with meds poor 05/01/2023: Saline nasal spray Continue monitoring BP 05/02/2023: Monitor BP 05/03/2023: Monitor BP Monitor right sided weakness 05/04/2023: Monitor closely BP labile (1) CVA (cerebral vascular accident) Discharge Summary Discharge Physical Examination Allergies: Coded Allergies: Penicillins (Verified Allergy, Unknown, 09/01/22) codeine (Verified Allergy, Unknown, 09/01/22) digoxin (Verified Allergy, Unknown, near syncope, 05/03/23) doxycycline (Verified Allergy, Unknown, 04/29/23) hydrocodone (Verified Allergy, Unknown, 04/29/23) Uncoded Allergies: cucumbers (Allergy, Unknown, 04/29/23) oranges (Allergy, Unknown, 04/29/23) peanuts (Allergy, Unknown, 04/29/23) strawberries (Allergy, Unknown, 04/29/23) tomatoes (Allergy, Unknown, 04/29/23) walnuts (Allergy, Unknown, 04/29/23) Vitals & I&Os Vital Signs Date Time Temp Pulse Resp B/P (MAP) Pulse Ox O2 Delivery O2 Flow Rate FiO2 05/05/23 09:30 Room Air 05/05/23 08:00 36.3 75 18 148/91 (110) 98 Hospital Course Was the Problem List Reviewed?: Yes Uneventful hospital course after she was admitted following an CVA with infarcts bilateral internal capsules. Patient remained stable with vitals and labs. BP remained a bit labile but she was resistant to further addition of meds. She refused to take the Lipitor most of the time although I recommended to take. Patient was able to regain function and numbness on her right side resolved and she was deemed stable for DC Labs (last 24 hrs) Laboratory Tests 04/29/23 06:00: White Blood Count 5.8, Red Blood Count 4.24, Hemoglobin 13.3, Hematocrit 39, Mean Corpuscular Volume 91, Mean Corpuscular Hemoglobin 31, Mean Corpuscular Hemoglobin Concent 34, Red Cell Distribution Width 11.9, Platelet Count 224, Mean Platelet Volume 9.3, Immature Granulocyte % (Auto) 0, Neutrophils (%) (Auto) 49, Lymphocytes (%) (Auto) 38, Monocytes (%) (Auto) 8, Eosinophils (%) (Auto) 4, Basophils (%) (Auto) 2, Neutrophils # (Auto) 2.8, Lymphocytes # (Auto) 2.2, Monocytes # (Auto) 0.4, Eosinophils # (Auto) 0.2, Basophils # (Auto) 0.1, Immature Granulocyte # (Auto) 0.0, Sodium Level 141, Potassium Level 4.0, Chloride Level 109H, Carbon Dioxide Level 23, Anion Gap 9, Blood Urea Nitrogen 11, Creatinine 0.73, Estimat Glomerular Filtration Rate 95, BUN/Creatinine Ratio 15, Glucose Level 94, Calcium Level 9.2, Corrected Calcium 9.4, Total Bilirubin 0.6, Aspartate Amino Transf (AST/SGOT) 31, Alanine Aminotransferase (ALT/SGPT) 30, Alkaline Phosphatase 72, Total Protein 6.5, Albumin 3.8 05/03/23 05:30: White Blood Count 6.0, Red Blood Count 4.21, Hemoglobin 13.3, Hematocrit 39, Mean Corpuscular Volume 93, Mean Corpuscular Hemoglobin 32, Mean Corpuscular Hemoglobin Concent 34, Red Cell Distribution Width 12.2, Platelet Count 220, Mean Platelet Volume 9.6, Immature Granulocyte % (Auto) 0, Neutrophils (%) (Auto) 47, Lymphocytes (%) (Auto) 39, Monocytes (%) (Auto) 9, Eosinophils (%) (Auto) 4, Basophils (%) (Auto) 1, Neutrophils # (Auto) 2.8, Lymphocytes # (Auto) 2.4, Monocytes # (Auto) 0.5, Eosinophils # (Auto) 0.3, Basophils # (Auto) 0.1, Immature Granulocyte # (Auto) 0.0, Sodium Level 139, Potassium Level 4.0, Chloride Level 106, Carbon Dioxide Level 25, Anion Gap 8, Blood Urea Nitrogen 15, Creatinine 0.82, Estimat Glomerular Filtration Rate 82, BUN/Creatinine Ratio 18, Glucose Level 102, Calcium Level 9.2, Corrected Calcium 9.4, Total Bilirubin 0.4, Aspartate Amino Transf (AST/SGOT) 21, Alanine Aminotransferase (ALT/SGPT) 3 0, Alkaline Phosphatase 78, Total Protein 6.5, Albumin 3.8 Pending Labs Laboratory Tests 04/29/23 06:00: White Blood Count 5.8, Red Blood Count 4.24, Hemoglobin 13.3, Hematocrit 39, Mean Corpuscular Volume 91, Mean Corpuscular Hemoglobin 31, Mean Corpuscular Hemoglobin Concent 34, Red Cell Distribution Width 11.9, Platelet Count 224, Mean Platelet Volume 9.3, Immature Granulocyte % (Auto) 0, Neutrophils (%) (Auto) 49, Lymphocytes (%) (Auto) 38, Monocytes (%) (Auto) 8, Eosinophils (%) (Auto) 4, Basophils (%) (Auto) 2, Neutrophils # (Auto) 2.8, Lymphocytes # (Auto) 2.2, Monocytes # (Auto) 0.4, Eosinophils # (Auto) 0.2, Basophils # (Auto) 0.1, Immature Granulocyte # (Auto) 0.0, Sodium Level 141, Potassium Level 4.0, Ch loride Level 109, Carbon Dioxide Level 23, Anion Gap 9, Blood Urea Nitrogen 11, Creatinine 0.73, Estimat Glomerular Filtration Rate 95, BUN/Creatinine Ratio 15, Glucose Level 94, Calcium Level 9.2, Corrected Calcium 9.4, Total Bilirubin 0.6, Aspartate Amino Transf (AST/SGOT) 31, Alanine Aminotransferase (ALT/SGPT) 30, Alkaline Phosphatase 72, Total Protein 6.5, Albumin 3.8 05/03/23 05:30: White Blood Count 6.0, Red Blood Count 4.21, Hemoglobin 13.3, Hematocrit 39, Mean Corpuscular Volume 93, Mean Corpuscular Hemoglobin 32, Mean Corpuscular Hemoglobin Concent 34, Red Cell Distribution Width 12.2, Platelet Count 220, Mean Platelet Volume 9.6, Immature Granulocyte % (Auto) 0, Neutrophils (%) (Auto) 47, Lymphocytes (%) (Auto) 39, Monocytes (%) (Auto) 9, Eosinophils (%) (Auto) 4, Basophils (%) (Auto) 1, Neutrophils # (Auto) 2.8, Lymphocytes # (Auto) 2.4, Monocytes # (Auto) 0.5, Eosinophils # (Auto) 0.3, Basophils # (Auto) 0.1, Immature Granulocyte # (Auto) 0.0, Sodium Level 139, Potassium Level 4.0, Chloride Level 106, Carbon Dioxide Level 25, Anion Gap 8, Blood Urea Nitrogen 15, Creatinine 0.82, Estimat Glomerular Filtration Rate 82, BUN/Creatinine Ratio 18, Glucose Level 102, Calcium Level 9.2, Corrected Calcium 9.4, Total Bilirubin 0.4, Aspartate Amino Transf (AST/SGOT) 21, Alanine Aminotransferase (ALT/SGPT) 30, Alkaline Phosphatase 78, Total Protein 6.5, Albumin 3.8 Discharge Home Medications: Active Scripts Active Klor-Con 10 (Potassium Chloride) 10 Meq Tablet.er 10 Meq PO DAILY@0700 Clopidogrel (Clopidogrel Bisulfate) 75 Mg Tablet 75 Mg PO DAILY@2100 Amlodipine Besylate 10 Mg Tablet 10 Mg PO DAILY Clonidine HCl 0.1 Mg Tablet 0.1 Mg PO UD PRN MDD 5 DOSES Lisinopril 20 Mg Tablet 20 Mg PO BID Atorvastatin Calcium 20 Mg Tablet 20 Mg PO DAILY Aspirin 81 Mg Tab.chew 81 Mg PO DAILY Reported Tylenol Extra Strength (Acetaminophen) 500 Mg Tablet 500-1,000 Mg PO Q8H PRN Benadryl Allergy (Diphenhydramine HCl) 25 Mg Tablet 25 Mg PO Q6H PRN Instructions to patient/family Please see electronic discharge instructions given to patient. Diagnosis/Problems Diagnosis/Problems (1) CVA (cerebral vascular accident) NICOLLE MEJÍA DO May 05, 2023 04:44
[2023-05-05] MEDS: POTASSIUM CHLORIDE 10 MEQ TABLET PO SCH (05:54)
[2023-05-05 08:00] VITALS: BP 148/91
[2023-05-05] MEDS: amLODIPine 10 MG TABLET PO SCH (08:11)
[2023-05-05] MEDS: ASPIRIN 81 MG CHEWABLE TABLET PO SCH (08:11)
[2023-05-05] MEDS: SALINE NASAL SPRAY 45 ML BTL SCH (08:12)
[2023-05-05] MEDS: cloNIDine 0.1 MG TABLET PO SCH (08:12)
[2023-05-05] MEDS: DOCUSATE SODIUM 100 MG CAPSULE PO SCH (08:12)
[2023-05-05] MEDS: SENNA W/DOCUSATE TABLET PO SCH (08:13)
--- NOTE | 2023-05-06 07:23 | Therapy Team Discharge Summary ---
Therapy Discharge Summary Discharge Recommendations Date of Discharge May 05, 2023 at 13:10 Therapy D/C Recommendations: Occupational Therapy Outpatient Physical Therapy Roll Left to Right (QC): 6 Sit to Lying (QC): 6 Lying to Sitting/Side of Bed(Q: 6 Sit to Stand (QC): 6 Chair/Vge-qp-Aybua Xfer(QC): 6 Toilet Transfer (QC): 6 Car Transfer (QC): 5 Does the Patient Walk: Yes Mode of Locomotion: Walk Anticipated Mode of Locomotion: Walk Walk 10 feet (QC): 6 Walk 50 ft with 2 Turns(QC): 6 Walk 150 ft (QC): 6 Walking 10ft on uneven surface: 6 Distance: 200', (R) knee snaps into hyperextension with heel strike Gait Assistive Device: FWW Does the Pt Use a Wheelchair: No Wheel 50 ft with 2 turns (QC): 9 Wheel 150 ft (QC): 9 1 Step (curb) (QC): 6 4 Steps (QC): 6 12 Steps (QC): 6 Walking Assistive Device: Walker Balance Sitting Static: Normal Balance Sitting Dynamic: Good Balance-Standing Static: Fair Picking up an Object (QC): 6 Occupational Therapy Pt admitted to [facility] s/p CVA. At [facility], pt was independent with ADLs and functional mobility. Upon initial evaluation, pt required set up with eating, UBD, and footwear, CGA with oral care, LBD, and toileting, and SBA showering. OT Tx focused on increasing BUE strength and activity tolerance, neuromuscular reeducation, and increasing safety and independence with ADLS and functional mobility. Pt made good progress towards goals, attaining all LTGs. Pt discharged home with spouse, d/c from OT. Decreased Activ Tolerance, Impaired I ADL's Eating (QC): 6 Oral Hygiene (QC): 6 (standing at sink) Shower/Bathe Self (QC): 6 Upper Body Dressing (QC): 6 Lower Body Dressing (QC): 6 On/Off Footwear (QC): 6 Toileting Hygiene (QC): 6 PT Mcfp Goals Mcfp Goals PT Program Director Scouting Goals Time Frame: May 12, 2023 Roll Left to Right (QC): 6 Sit to Lying (QC): 6 Lying-Sitting on Side/Bed(QC): 6 Sit to Stand (QC): 6 Chair/Jer-ge-Aydjb Xfer(QC): 6 (/c FWW) Toilet/Commode Transfer (QC): 6 (/c FWW) Car Transfer (QC): 5 (/c FWW) Does the Patient Walk: Yes Walk 10 feet (QC): 6 (/c FWW) Walk 10ft-Uneven Surface(QC): 6 (/c FWW) Walk 50ft with 2 Turns (QC): 6 (/c FWW) Walk 150 ft (QC): 6 (/c FWW) Does the Pt use WC or Scooter?: No Wheel 50 feet with 2 turns (QC: 9 Wheel 150 feet: 9 1 Step (curb) (QC): 5 (/c FWW) 4 Steps (QC): 6 (/c (B) rails) 12 Steps (QC): 6 (/c (B) rails) Picking up an Object (QC): 6 (/c or /s human resources talent manager) OT Mcfp Goals Program Director Scouting Goals Time Frame: May 14, 2023 Acute change in mental status: 0 Inattention: 0 Disorganized thinkin Altered level of consciousness: 0 Eating (QC): 6 (met) Oral Hygiene (QC): 6 (met) Toileting Hygiene (QC): 6 (met) Shower/Bathe Self (QC): 6 (met) Upper Body Dressing (QC): 6 (met) Lower Body Dressing (QC): 6 (met) On/Off Footwear (QC): 6 (met) Additional Goals: 1-Demonstrate ADL Tasks, 2-Verbalize Understanding, 3- ImproveStrength/Cristine 1=Demonstrate adherence to instructed precautions during ADL tasks. 2=Patient will verbalize/demonstrate understanding of assistive devices/modific ations for ADL. 3=Patient will improve strength/tolerance for activity to enable patient to perform ADL's. FREDY FELIPE OT May 06, 2023 07:23
== END 2023-05-05 13:10 | disposition home or self-care (01) | DRG 57 ==
PROVIDERS: ADMIT Internal Medicine; ATTEND Internal Medicine
DX: I69.351 Hemiplegia and hemiparesis following cerebral infarction affecting right dominant side (principal); I69.398 Other sequelae of cerebral infarction; R27.8 Other lack of coordination; R20.0 Anesthesia of skin; E87.6 Hypokalemia; I10 Essential (primary) hypertension; F17.210 Nicotine dependence, cigarettes, uncomplicated; E78.5 Hyperlipidemia, unspecified; R04.0 Epistaxis; Z91.148 Patient's other noncompliance with medication regimen for other reason; Z79.899 Other long term (current) drug therapy; Z79.02 Long term (current) use of antithrombotics/antiplatelets; Z79.82 Long term (current) use of aspirin; Z88.1 Allergy status to other antibiotic agents; Z88.5 Allergy status to narcotic agent; Z88.0 Allergy status to penicillin
CPT/HCPCS: 36415; 80053; 85025